=== PATIENT | male | born 1985 | race Caucasian/White ===

== ENCOUNTER 2017-08-19 18:40 | Emergency (ER) | payer OTHER ==
[2017-08-19 20:52] LABS: #Eosinphils 0.1 thou/uL (0.0-0.7); #Lymphocytes 1.7 thou/uL (1.20-3.40); #Monocytes 0.8 thou/uL (0.11-0.59); #Neutrophils 8.8 thou/uL (1.40-6.50); %Basophils 0.2 % (0.0-1.0); %Eosinophils 0.9 % (0.0-10.0); %Lymphocytes 14.8 % (21.0-51.0); %Monocytes 6.9 % (0.0-10.0); %Neutrophils 77.3 % (42.0-75.0); Hemoglobin 14.5 g/dL (14.0-18.0); Mean Corpuscular HGB CONC 33.2 g/dL (32.0-36.0); Mean Corpuscular Hemoglobin 30.9 pg (27.0-31.0); Mean Corpuscular Volume 92.9 fl (80.0-94.0); Mean Platelet Volume 7.5 fL (7.4-10.4); Platelet Count 190 thou/uL (130-400); RBC Distribution Width 12.1 % (11.5-14.5); Red Blood Cell (RBC) Count 4.71 mill/uL (4.70-6.10); White Blood Cell (WBC) Count 11.4 thou/uL (4.8-10.8)
[2017-08-19 21:08] LABS: Bilirubin Negative (Negative); Blood, Urine Negative (Negative); Clarity CLOUDY (Clear); Glucose, Urine (Dipstick) Negative (Negative); Leukocyte Moderate (Negative); Nitrite Positive (Negative); Protein, Urine (Dipstick) Negative (Neg-Trace); Specific Gravity, Urine 1.008 (1.002-1.036); Urobilinogen 0.2 mg/dL (0.2-1.0)
[2017-08-19 21:10] LABS: Bacteria/HPF 4+ HPF (None Seen); RBC/HPF 0-3 HPF (0-3)
[2017-08-19 21:11] LABS: Pathc Cast-AUWi Flag 3.11 (0-2.49)
[2017-08-19 21:15] LABS: ALT (SGPT) 24 U/L (8-55); AST (SGOT) 18 U/L (5-34); Albumin 3.9 g/dL (3.5-5.0); Alkaline Phosphatase 101 U/L (40-150); Anion Gap 15 mmol/L (10-20); BUN (Urea Nitrogen) 12 mg/dL (8.9-20.6); Bilirubin, Total 0.4 mg/dL (0.2-1.2); Calc. Creatinine Clearance 0 mL/min (70-130); Calcium 9.3 mg/dL (7.8-10.44); Carbon Dioxide 23 mmol/L (22-29); Chloride 101 mmol/L (98-107); Estimated GFR-MDRD Greater than 90; Globulin 3.5 g/dL (2.4-3.5); Glucose 92 mg/dL (70-105); Lipase 57 U/L (8-78); Potassium 3.6 mmol/L (3.5-5.1); Protein, Total 7.4 g/dL (6.0-8.3); Sodium 135 mmol/L (136-145)
[2017-08-19 21:17] LABS: Amphetamine Not Detected (NotDetected); Barbiturates Screen Not Detected (NotDetected); Benzodiazepine Screen Not Detected (NotDetected); Cocaine Metabolite Screen Not Detected (NotDetected); Medtox Control Line Valid? VALID (VALID); Medtox Reader # READER 1; Methadone Not Detected (NotDetected); Methamphetamine Not Detected (NotDetected); Opiate Screen Not Detected (NotDetected); Oxycodone Screen Not Detected (NotDetected); Phencyclidine (PCP) Not Detected (NotDetected); THC/Cannabinoid Screen Not Detected (NotDetected); Tricyclic Screen Not Detected (NotDetected)
[2017-08-19 21:19] LABS: CKMB 3.7 ng/mL (0-6.6); Troponin I Less than 0.010 ng/mL (< 0.028)
[2017-08-19 21:20] LABS: Hyaline Casts/LPF 0-3 HYALINE CAST LPF (0-3 Hyaline)
--- NOTE | 2017-08-19 22:18 | RAD ---
CHEST 1 VIEW: Date: 08/19/17 HISTORY: Altered mental status. COMPARISON: 06/30/09. FINDINGS: Normal cardiac silhouette. Pulmonary vessels and hilum are normal. Costophrenic angles are clear. Ple ural based opacity along the left lung apex, unchanged. Partial obscuration of left hemidiaphragm and increased density projecting through the cardiac silhou ette. IMPRESSION: 1. Left lower lobe infiltrate. 2. Stable opacity in left lung apex. POS: [facility]
--- NOTE | 2017-08-19 23:04 | CT ---
CT HEAD WITHOUT CONTRAST: Date: 08/19/17 Multiple axial tomograms obtained through the head without IV enhancement. HISTORY: Mental status change. Comparison made to head CT of 07/24/08. FINDINGS: There is mild volume loss involving the frontal lobe cortex bilaterally which is symmetric. This was present on the prior exam. It is more prominent than expected for patient's age. It has slightly prog ressed since the prior study. There is no evidence of mass, hemorrhage, or infarct. IMPRESSION: 1. Mild frontal lobe volume loss, more prominent than expected for age. 2. No acute abnormality. POS: [facility]
== END 2017-08-19 23:33 | disposition home or self-care (01) ==
LOC: ERS 18:40
DX: J18.9 Pneumonia, unspecified organism (principal); G82.50 Quadriplegia, unspecified; F32.9 Major depressive disorder, single episode, unspecified
CPT/HCPCS: 36415; 70450; 71045; 80053; 80306; 81003; 81015; 82553; 83605; 83690; 84443; 84484; 85025; 85652; 87040; 93005

== ENCOUNTER 2021-02-10 21:57 | Inpatient (IN) | payer OTHER ==
[2021-02-10 22:24] LABS: Bacteria/HPF 4+ HPF (None Seen); Bilirubin Negative (Negative); Blood, Urine Negative (Negative); Clarity Turbid (Clear); Glucose, Urine (Dipstick) Normal (Negative); Ketone, Urine Negative (Negative); Leukocyte 250 Leu/uL (Negative); Nitrite 2+ (Negative); Protein, Urine (Dipstick) Negative (Neg-Trace); Renal Epithelial 0-3 HPF (None Seen); Specific Gravity, Urine 1.011 (1.002-1.036); Squamous Epithelial 0-3 HPF (0-3); Urobilinogen Normal mg/dL (Less than 2)
[2021-02-10] MEDS ORDERED: Azithromycin 500 MG VIAL ONE (22:32)
[2021-02-10] MEDS ORDERED: cefTRIAXone\\ROCEPHIN 2 GM VIAL ONE (22:32)
[2021-02-10 22:55] LABS: #Eosinphils 0.1 thou/uL (0.0-0.7); #Lymphocytes 1.6 thou/uL (1.20-3.40); #Monocytes 0.7 thou/uL (0.11-0.59); #Neutrophils 7.3 thou/uL (1.40-6.50); %Basophils 0.2 % (0.0-1.0); %Eosinophils 1.4 % (0.0-10.0); %Lymphocytes 16.6 % (21.0-51.0); %Monocytes 6.8 % (0.0-10.0); Hemoglobin 13.7 g/dL (14.0-18.0); Mean Corpuscular HGB CONC 33.4 g/dL (32.0-36.0); Mean Corpuscular Hemoglobin 29.8 pg (27.0-31.0); Mean Corpuscular Volume 89.4 fL (78.0-98.0); Platelet Count 204 thou/uL (130-400); RBC Distribution Width 12.9 % (11.5-14.5); Red Blood Cell (RBC) Count 4.58 mill/uL (4.70-6.10); White Blood Cell (WBC) Count 9.7 thou/uL (4.8-10.8)
[2021-02-10 23:17] LABS: ALT (SGPT) 24 U/L (8-55); AST (SGOT) 15 U/L (5-34); Albumin 3.7 g/dL (3.5-5.0); Alkaline Phosphatase 90 U/L (40-110); Anion Gap 11 mmol/L (10-20); BUN (Urea Nitrogen) 6 mg/dL (8.9-20.6); Bilirubin, Total 0.4 mg/dL (0.2-1.2); Calc. Creatinine Clearance 0 mL/min (70-130); Calcium 9.3 mg/dL (7.8-10.44); Carbon Dioxide 29 mmol/L (22-29); Chloride 100 mmol/L (98-107); Globulin 4.2 g/dL (2.4-3.5); Glucose 142 mg/dL (70-105); Potassium 3.8 mmol/L (3.5-5.1); Protein, Total 7.9 g/dL (6.0-8.3); Sodium 136 mmol/L (136-145)
[2021-02-11] MEDS ORDERED: guaiFENesin 200 MG TAB PO SCH (00:15)
[2021-02-11 00:40] LABS: SARS-CoV-2 NAA Rapid Test Not Detected (NotDetected)
[2021-02-11] MEDS ORDERED: Ondansetron PF 4 MG/2 ML Vial IVP PRN ×2 (03:30→03:47)
[2021-02-11] MEDS ORDERED: Ondansetron ODT 4 MG TAB PO PRN (03:30)
[2021-02-11] MEDS: Acetaminophen 325 MG TAB PO PRN ×3 (03:50→19:40)
[2021-02-11] MEDS: Acetylcysteine 20% 200 MG/ML 30 ML VIAL INH SCH ×2 (04:30→14:33)
[2021-02-11 04:36] LABS: #Lymphocytes 0.6 thou/uL (1.20-3.40); #Monocytes 1.5 thou/uL (0.11-0.59); #Neutrophils 16.2 thou/uL (1.40-6.50); %Eosinophils 0.2 % (0.0-10.0); %Lymphocytes 3.5 % (21.0-51.0); %Monocytes 8.1 % (0.0-10.0); %Neutrophils 88.3 % (42.0-75.0); Hemoglobin 12.7 g/dL (14.0-18.0); Mean Corpuscular HGB CONC 32.3 g/dL (32.0-36.0); Mean Corpuscular Hemoglobin 28.8 pg (27.0-31.0); Mean Corpuscular Volume 89.1 fL (78.0-98.0); Platelet Count 188 thou/uL (130-400); RBC Distribution Width 12.9 % (11.5-14.5); Red Blood Cell (RBC) Count 4.42 mill/uL (4.70-6.10); White Blood Cell (WBC) Count 18.3 thou/uL (4.8-10.8)
[2021-02-11 04:58] LABS: Anion Gap 10 mmol/L (10-20); BUN (Urea Nitrogen) 5 mg/dL (8.9-20.6); Calc. Creatinine Clearance 319 mL/min (70-130); Calcium 8.5 mg/dL (7.8-10.44); Carbon Dioxide 25 mmol/L (22-29); Chloride 106 mmol/L (98-107); Glucose 122 mg/dL (70-105); Potassium 3.5 mmol/L (3.5-5.1); Sodium 137 mmol/L (136-145)
[2021-02-11] MEDS: Enoxaparin Sodium 40 MG/0.4 ML SYRINGE SC SCH (10:10)
[2021-02-11] MEDS ORDERED: Morphine 2 MG/ML VIAL SLOW IVP PRN (18:45)
[2021-02-11] MEDS: guaiFENesin ER 600 MG TAB PO SCH (19:40)
[2021-02-11] MEDS ORDERED: Sodium Chloride 0.9% 500 ML IV SCH (20:15)
[2021-02-11] MEDS ORDERED: Azithromycin 500 MG in Sodium Chloride 0.9% 250 ML 250 ML IVPB SCH (20:30)
[2021-02-11] MEDS ORDERED: cefTRIAXone\\ROCEPHIN 1 GM in Sodium Chloride 0.9% 100 ML IVPB SCH (21:00)
[2021-02-11] MEDS: cefTRIAXone\\ROCEPHIN 2 GM in Sodium Chloride 0.9% 100 ML IVPB SCH (21:05)
[2021-02-12 03:38] LABS: #Eosinphils 0.1 thou/uL (0.0-0.7); #Monocytes 0.9 thou/uL (0.11-0.59); #Neutrophils 5.3 thou/uL (1.40-6.50); %Eosinophils 1.8 % (0.0-10.0); %Lymphocytes 13.4 % (21.0-51.0); %Monocytes 12.6 % (0.0-10.0); %Neutrophils 72.1 % (42.0-75.0); Hemoglobin 11.5 g/dL (14.0-18.0); Mean Corpuscular HGB CONC 33.2 g/dL (32.0-36.0); Mean Corpuscular Hemoglobin 30.1 pg (27.0-31.0); Mean Corpuscular Volume 90.8 fL (78.0-98.0); Platelet Count 165 thou/uL (130-400); RBC Distribution Width 13.1 % (11.5-14.5); White Blood Cell (WBC) Count 7.4 thou/uL (4.8-10.8)
[2021-02-12 03:53] LABS: Anion Gap 8 mmol/L (10-20); BUN (Urea Nitrogen) 7 mg/dL (8.9-20.6); Calc. Creatinine Clearance 342 mL/min (70-130); Calcium 8.6 mg/dL (7.8-10.44); Carbon Dioxide 30 mmol/L (22-29); Chloride 104 mmol/L (98-107); Glucose 121 mg/dL (70-105); Potassium 3.6 mmol/L (3.5-5.1); Sodium 138 mmol/L (136-145)
[2021-02-12] MEDS: Acetaminophen 325 MG TAB PO PRN (05:08)
[2021-02-12] MEDS: Enoxaparin Sodium 40 MG/0.4 ML SYRINGE SC SCH (08:20)
[2021-02-12] MEDS: guaiFENesin ER 600 MG TAB PO SCH ×2 (08:20→20:01)
[2021-02-12] MEDS: cefTRIAXone\\ROCEPHIN 2 GM in Sodium Chloride 0.9% 100 ML IVPB SCH (20:01)
[2021-02-13] MEDS: Acetaminophen 325 MG TAB PO PRN (00:59)
[2021-02-13] MEDS: Enoxaparin Sodium 40 MG/0.4 ML SYRINGE SC SCH (08:14)
[2021-02-13] MEDS: guaiFENesin ER 600 MG TAB PO SCH ×2 (08:14→20:42)
[2021-02-13 09:22] LABS: #Eosinphils 0.2 thou/uL (0.0-0.7); #Lymphocytes 1.2 thou/uL (1.20-3.40); #Monocytes 0.7 thou/uL (0.11-0.59); #Neutrophils 3.2 thou/uL (1.40-6.50); %Basophils 0.6 % (0.0-1.0); %Eosinophils 3.4 % (0.0-10.0); %Lymphocytes 22.7 % (21.0-51.0); %Monocytes 13.5 % (0.0-10.0); %Neutrophils 59.9 % (42.0-75.0); Hemoglobin 11.7 g/dL (14.0-18.0); Mean Corpuscular HGB CONC 31.5 g/dL (32.0-36.0); Mean Corpuscular Hemoglobin 28.5 pg (27.0-31.0); Mean Corpuscular Volume 90.7 fL (78.0-98.0); Mean Platelet Volume 7.2 fL (7.4-10.4); Platelet Count 187 thou/uL (130-400); Red Blood Cell (RBC) Count 4.11 mill/uL (4.70-6.10); White Blood Cell (WBC) Count 5.4 thou/uL (4.8-10.8)
[2021-02-13 09:30] LABS: Anion Gap 11 mmol/L (10-20); BUN (Urea Nitrogen) 4 mg/dL (8.9-20.6); Calc. Creatinine Clearance 323 mL/min (70-130); Carbon Dioxide 32 mmol/L (22-29); Chloride 99 mmol/L (98-107); Glucose 144 mg/dL (70-105); Potassium 4.1 mmol/L (3.5-5.1); Sodium 138 mmol/L (136-145)
[2021-02-13] MEDS: cefTRIAXone\\ROCEPHIN 2 GM in Sodium Chloride 0.9% 100 ML IVPB SCH (20:41)
[2021-02-14 04:06] LABS: Anion Gap 10 mmol/L (10-20); BUN (Urea Nitrogen) 7 mg/dL (8.9-20.6); Calc. Creatinine Clearance 303 mL/min (70-130); Calcium 8.9 mg/dL (7.8-10.44); Carbon Dioxide 32 mmol/L (22-29); Chloride 99 mmol/L (98-107); Glucose 109 mg/dL (70-105); Potassium 4.1 mmol/L (3.5-5.1); Sodium 137 mmol/L (136-145)
[2021-02-14 04:09] LABS: Band 3 % (5-11); Eosinophils 1 % (0-10); Hemoglobin 12.2 g/dL (14.0-18.0); Hypochromia SLIGHT = 6-15 cells (100X) (0-5/hpf); Lymphocytes 27 % (21-51); MDiff Complete? YES; Mean Corpuscular HGB CONC 32.2 g/dL (32.0-36.0); Mean Corpuscular Hemoglobin 29.2 pg (27.0-31.0); Mean Corpuscular Volume 90.6 fL (78.0-98.0); Mean Platelet Volume 7.4 fL (7.4-10.4); Monocytes 10 % (0-10); Neutrophil 59 % (42-75); Platelet Count 166 thou/uL (130-400); Platelet Morphology Comment Appears Adequate; RBC Distribution Width 13.2 % (11.5-14.5); Red Blood Cell (RBC) Count 4.19 mill/uL (4.70-6.10); White Blood Cell (WBC) Count 6.5 thou/uL (4.8-10.8)
[2021-02-14 09:07] LABS: Actual Bicarbonate (HCO3a) 32.7 mEq/L (22-28); Base Excess (BEa) 6.1 mEq/L (-2.0 to +3.0); CO2 Tension 56.5 mmHg (35.0-45.0); Calcium, Ionized (arterial) 1.18 mmol/L (1.12-1.30); Carboxyhemoglobin (COHb) 0.2 gm% (0.0-3.0); Hemoglobin (Hb) 13.3 g/dL (14.0-18.0); Potassium - ABG Lab 3.64 mmol/L (3.70-5.30); pH, Arterial 7.38 (7.35-7.45)
[2021-02-14 09:08] LABS: Puncture Site RRA
[2021-02-14] MEDS: Acetaminophen 325 MG TAB PO PRN (10:11)
[2021-02-14] MEDS: Enoxaparin Sodium 40 MG/0.4 ML SYRINGE SC SCH (10:12)
[2021-02-14] MEDS: guaiFENesin ER 600 MG TAB PO SCH ×2 (10:12→20:43)
[2021-02-14 10:52] VITALS: BMI 28.6
[2021-02-14] MEDS ORDERED: Vancomycin 1 GM in Premix Bag 1 BAG IVPB SCH (12:00)
[2021-02-14] MEDS: Vancomycin 1 GM in Premix Bag 1 BAG IVPB SCH (16:17)
[2021-02-14] MEDS: Bisacodyl 10 MG SUPP PR SCH (17:10)
[2021-02-14] MEDS: Baclofen 10 MG TAB PO PRN (18:32)
[2021-02-14] MEDS: cefTRIAXone\\ROCEPHIN 2 GM in Sodium Chloride 0.9% 100 ML IVPB SCH (20:42)
[2021-02-15] MEDS: Vancomycin 1 GM in Premix Bag 1 BAG IVPB SCH ×2 (03:30→15:25)
[2021-02-15] MEDS: Acetaminophen 325 MG TAB PO PRN (06:12)
[2021-02-15] MEDS: Baclofen 10 MG TAB PO PRN ×2 (07:17→21:13)
[2021-02-15] MEDS: Enoxaparin Sodium 40 MG/0.4 ML SYRINGE SC SCH (08:33)
[2021-02-15] MEDS: guaiFENesin ER 600 MG TAB PO SCH ×2 (10:00→21:13)
[2021-02-15] MEDS: cefTRIAXone\\ROCEPHIN 2 GM in Sodium Chloride 0.9% 100 ML IVPB SCH (21:12)
[2021-02-15] MEDS: Scopolamine 1.5 mg/72 hour Patch TD SCH (21:12)
[2021-02-16] MEDS: Vancomycin 1 GM in Premix Bag 1 BAG IVPB SCH (03:18)
[2021-02-16] MEDS: Acetaminophen 325 MG TAB PO PRN (07:31)
[2021-02-16] MEDS: guaiFENesin ER 600 MG TAB PO SCH ×2 (09:09→20:55)
[2021-02-16] MEDS: Enoxaparin Sodium 40 MG/0.4 ML SYRINGE SC SCH (09:10)
[2021-02-16] MEDS: Baclofen 10 MG TAB PO PRN (09:14)
[2021-02-16] MEDS: Amoxicillin/Potassium Clav 875 MG TAB PO SCH ×2 (09:14→20:55)
[2021-02-16 10:11] LABS: #Eosinphils 0.3 thou/uL (0.0-0.7); #Lymphocytes 1.5 thou/uL (1.20-3.40); #Monocytes 0.6 thou/uL (0.11-0.59); #Neutrophils 4.3 thou/uL (1.40-6.50); %Basophils 0.5 % (0.0-1.0); %Eosinophils 4.4 % (0.0-10.0); %Lymphocytes 22.8 % (21.0-51.0); %Monocytes 9.4 % (0.0-10.0); Mean Corpuscular HGB CONC 32.2 g/dL (32.0-36.0); Mean Corpuscular Volume 89.8 fL (78.0-98.0); Mean Platelet Volume 6.7 fL (7.4-10.4); Platelet Count 210 thou/uL (130-400); RBC Distribution Width 12.8 % (11.5-14.5); Red Blood Cell (RBC) Count 4.15 mill/uL (4.70-6.10); White Blood Cell (WBC) Count 6.7 thou/uL (4.8-10.8)
[2021-02-16 10:32] LABS: Anion Gap 10 mmol/L (10-20); BUN (Urea Nitrogen) 6 mg/dL (8.9-20.6); Calc. Creatinine Clearance 304 mL/min (70-130); Calcium 9.3 mg/dL (7.8-10.44); Carbon Dioxide 34 mmol/L (22-29); Chloride 98 mmol/L (98-107); Glucose 107 mg/dL (70-105); Potassium 3.8 mmol/L (3.5-5.1); Sodium 138 mmol/L (136-145)
[2021-02-16] MEDS: Linezolid 600 MG TAB PO SCH ×2 (10:35→20:55)
[2021-02-16] MEDS: Bisacodyl 10 MG SUPP PR SCH (18:29)
[2021-02-17] MEDS: Amoxicillin/Potassium Clav 875 MG TAB PO SCH ×2 (09:00→21:28)
[2021-02-17] MEDS: guaiFENesin ER 600 MG TAB PO SCH ×2 (09:00→21:27)
[2021-02-17] MEDS: Linezolid 600 MG TAB PO SCH ×2 (09:00→21:28)
[2021-02-17] MEDS: Enoxaparin Sodium 40 MG/0.4 ML SYRINGE SC SCH (09:01)
[2021-02-17] MEDS: Baclofen 10 MG TAB PO PRN (09:21)
[2021-02-18] MEDS: Amoxicillin/Potassium Clav 875 MG TAB PO SCH ×2 (08:42→22:19)
[2021-02-18] MEDS: guaiFENesin ER 600 MG TAB PO SCH ×2 (08:42→22:19)
[2021-02-18] MEDS: Linezolid 600 MG TAB PO SCH ×2 (08:42→22:19)
[2021-02-18] MEDS: Enoxaparin Sodium 40 MG/0.4 ML SYRINGE SC SCH (08:42)
[2021-02-18 12:52] LABS: SARS-CoV-2 PCR by NAA Not Detected (NotDetected)
[2021-02-18] MEDS: Scopolamine 1.5 mg/72 hour Patch TD SCH (17:18)
[2021-02-18] MEDS: Bisacodyl 10 MG SUPP PR SCH (17:19)
[2021-02-18] MEDS: Acetaminophen 325 MG TAB PO PRN (22:19)
[2021-02-19] MEDS: Linezolid 600 MG TAB PO SCH (08:06)
[2021-02-19] MEDS: guaiFENesin ER 600 MG TAB PO SCH (08:06)
[2021-02-19] MEDS: Amoxicillin/Potassium Clav 875 MG TAB PO SCH (08:06)
[2021-02-19] MEDS: Enoxaparin Sodium 40 MG/0.4 ML SYRINGE SC SCH (08:06)
[2021-02-19 17:30] VITALS: BP 134/83; TEMP 98.5
== END 2021-02-19 19:22 | disposition home or self-care (01) | DRG 698 ==
LOC: ERS 21:57 → 2NO 02-11 02:06 → CCU 02-11 22:07 → T4-B 02-16 15:05
PROVIDERS: ADMIT Student in an Organized Health Care Education/Training Program; ATTEND Internal Medicine
PROC: 5A09357 Assistance with Respiratory Ventilation, Less than 24 Consecutive Hours, Continuous Positive Airway Pressure (ICD-10-PCS; principal; 2021-02-11)
DX: T83.510A Infection and inflammatory reaction due to cystostomy catheter, initial encounter (principal); G82.50 Quadriplegia, unspecified; J96.21 Acute and chronic respiratory failure with hypoxia; J96.22 Acute and chronic respiratory failure with hypercapnia; J18.9 Pneumonia, unspecified organism; N39.0 Urinary tract infection, site not specified; D64.9 Anemia, unspecified; Z20.822 Contact with and (suspected) exposure to COVID-19; J20.9 Acute bronchitis, unspecified; Y84.6 Urinary catheterization as the cause of abnormal reaction of the patient, or of later complication, without mention of misadventure at the time of the procedure; N31.9 Neuromuscular dysfunction of bladder, unspecified; E87.8 Other disorders of electrolyte and fluid balance, not elsewhere classified; S19.89 Other specified injuries of other specified part of neck; X58.XXXS Exposure to other specified factors, sequela; Z98.890 Other specified postprocedural states
CPT/HCPCS: 0240U; 36415; 36600; 71045; 80048; 80053; 81003; 81015; 82805; 83605; 83880; 85025; 87040; 87086; 93005; 93010; 94640; 94660; 94668; 96365; 96367; J0132; J0456; J0696; J1650; J2405; J3370; J3490; J7030; J7620; U0003; U0005

== ENCOUNTER 2022-02-20 13:16 | Inpatient (IN) | payer OTHER ==
[~2022-02-20 13:16] MED LIST: Iopamidol-370 76% 500 ML 1 ML ONE
[2022-02-20] MEDS ORDERED: Ondansetron PF 4 MG/2 ML Vial ONE (14:06)
[2022-02-20 14:08] LABS: #Eosinphils 0.1 thou/uL (0.0-0.7); #Lymphocytes 1.1 thou/uL (1.20-3.40); #Monocytes 0.7 thou/uL (0.11-0.59); #Neutrophils 11.7 thou/uL (1.40-6.50); %Basophils 0.1 % (0.0-1.0); %Eosinophils 0.4 % (0.0-10.0); %Lymphocytes 8.2 % (21.0-51.0); %Monocytes 5.2 % (0.0-10.0); %Neutrophils 86.1 % (42.0-75.0); Hemoglobin 14.9 g/dL (14.0-18.0); Mean Corpuscular HGB CONC 33.2 g/dL (32.0-36.0); Mean Corpuscular Volume 87.5 fL (78.0-98.0); Mean Platelet Volume 8.6 fL (7.4-10.4); Platelet Count 256 thou/uL (130-400); RBC Distribution Width 12.9 % (11.5-14.5); Red Blood Cell (RBC) Count 5.13 mill/uL (4.70-6.10); White Blood Cell (WBC) Count 13.6 thou/uL (4.8-10.8)
[2022-02-20 15:17] LABS: Bacteria/HPF 4+ HPF (None Seen); Bilirubin Negative (Negative); Blood, Urine Trace (Negative); Clarity Extra Turbid (Clear); Glucose, Urine (Dipstick) Normal (Negative); Ketone, Urine Negative (Negative); Leukocyte 500 Leu/uL (Negative); Nitrite Negative (Negative); Protein, Urine (Dipstick) 20 mg/dL (Neg-Trace); RBC/HPF 0-3 HPF (0-3); Specific Gravity, Urine 1.005 (1.002-1.036); Urobilinogen Normal mg/dL (Less than 2)
[2022-02-20 15:21] LABS: Albumin 3.8 g/dL (3.5-5.0)
[2022-02-20 15:22] LABS: Chloride 95 mmol/L (98-107); Potassium 3.5 mmol/L (3.5-5.1); Sodium 131 mmol/L (136-145)
[2022-02-20 15:23] LABS: Calcium 9.3 mg/dL (7.8-10.44)
[2022-02-20 15:24] LABS: Globulin 4.9 g/dL (2.4-3.5); Glucose 125 mg/dL (70-105); Protein, Total 8.7 g/dL (6.0-8.3)
[2022-02-20 15:25] LABS: Anion Gap 12 mmol/L (10-20); Bilirubin, Total 0.6 mg/dL (0.2-1.2); Carbon Dioxide 28 mmol/L (22-29)
[2022-02-20 15:26] LABS: Alkaline Phosphatase 92 U/L (40-110)
[2022-02-20 15:27] LABS: BUN (Urea Nitrogen) 12 mg/dL (8.9-20.6); Calc. Creatinine Clearance 0 mL/min (70-130); Estimated GFR 132
[2022-02-20 15:28] LABS: AST (SGOT) 12 U/L (5-34)
[2022-02-20 15:29] LABS: ALT (SGPT) 14 U/L (8-55); Magnesium 1.8 mg/dL (1.6-2.6)
[2022-02-20 15:32] LABS: Squamous Epithelial 0-3 HPF (0-3); Transitional Epithelial 0-3 HPF (None Seen)
[2022-02-20] MEDS ORDERED: cefTRIAXone\\ROCEPHIN 2 GM VIAL ONE (16:33)
[2022-02-20] MEDS ORDERED: hydrALAZINE 20 MG/ML VIAL SLOW IVP PRN (19:18)
[2022-02-20] MEDS ORDERED: Acetaminophen 325 MG TAB PO PRN (19:18)
[2022-02-20] MEDS: Lactated Ringer's 1,000 ML IV SCH (20:03)
[2022-02-20 20:07] VITALS: BMI 24.9
[2022-02-20] MEDS: Famotidine 20 MG TAB PO SCH (22:04)
[2022-02-20] MEDS ORDERED: Ondansetron PF 4 MG/2 ML Vial IVP PRN (23:08)
[2022-02-20] MEDS ORDERED: Ondansetron ODT 4 MG TAB PO PRN (23:08)
[2022-02-21] MEDS: Lactated Ringer's 1,000 ML IV SCH ×3 (03:15→21:07)
[2022-02-21 04:49] LABS: SARS-CoV-2 NAA Rapid Test Not Detected (NotDetected)
[2022-02-21 06:06] LABS: #Eosinphils 0.3 thou/uL (0.0-0.7); #Lymphocytes 1.8 thou/uL (1.20-3.40); #Monocytes 1.2 thou/uL (0.11-0.59); #Neutrophils 5.3 thou/uL (1.40-6.50); %Basophils 0.2 % (0.0-1.0); %Lymphocytes 20.7 % (21.0-51.0); %Monocytes 13.9 % (0.0-10.0); %Neutrophils 61.2 % (42.0-75.0); Hemoglobin 12.7 g/dL (14.0-18.0); Mean Corpuscular HGB CONC 32.9 g/dL (32.0-36.0); Mean Corpuscular Hemoglobin 29.2 pg (27.0-31.0); Mean Corpuscular Volume 88.9 fL (78.0-98.0); Platelet Count 245 thou/uL (130-400); RBC Distribution Width 12.8 % (11.5-14.5); Red Blood Cell (RBC) Count 4.33 mill/uL (4.70-6.10); White Blood Cell (WBC) Count 8.7 thou/uL (4.8-10.8)
[2022-02-21 06:30] LABS: Anion Gap 12 mmol/L (10-20); BUN (Urea Nitrogen) 8 mg/dL (8.9-20.6); Calc. Creatinine Clearance 267 mL/min (70-130); Calcium 8.7 mg/dL (7.8-10.44); Carbon Dioxide 25 mmol/L (22-29); Chloride 100 mmol/L (98-107); Estimated GFR 141; Glucose 121 mg/dL (70-105); Potassium 3.3 mmol/L (3.5-5.1); Sodium 134 mmol/L (136-145)
[2022-02-21] MEDS ORDERED: MD-Gastroview 120 ML BOT ONE (09:41)
[2022-02-21] MEDS ORDERED: Chloraseptic Spray 180 ml Bottle PO PRN (10:14)
[2022-02-21] MEDS ORDERED: Potassium Chloride 20 MEQ TAB PO SCH (15:30)
[2022-02-21] MEDS: Enoxaparin Sodium 40 MG/0.4 ML SYRINGE SC SCH (15:41)
[2022-02-21] MEDS: Famotidine 20 MG TAB PO SCH ×2 (15:42→21:08)
[2022-02-21] MEDS: Nystatin Powder 15 GM BOT TOP SCH ×2 (15:43→21:08)
[2022-02-21] MEDS: cefTRIAXone\\ROCEPHIN 1 GM in Sodium Chloride 0.9% 100 ML IVPB SCH (18:24)
[2022-02-21] MEDS: Senokot S 8.6-50 MG TAB PO SCH (21:08)
[2022-02-22] MEDS: Lactated Ringer's 1,000 ML IV SCH (05:28)
[2022-02-22] MEDS: Enoxaparin Sodium 40 MG/0.4 ML SYRINGE SC SCH (09:15)
[2022-02-22] MEDS: Nystatin Powder 15 GM BOT TOP SCH ×3 (09:15→21:32)
[2022-02-22] MEDS: Famotidine 20 MG TAB PO SCH ×2 (09:15→21:31)
[2022-02-22] MEDS: Polyethylene Glycol 3350 17 GM Packet PO SCH (09:15)
[2022-02-22] MEDS: Senokot S 8.6-50 MG TAB PO SCH ×2 (09:16→21:33)
[2022-02-22] MEDS: cefTRIAXone\\ROCEPHIN 1 GM in Sodium Chloride 0.9% 100 ML IVPB SCH (17:31)
[2022-02-23] MEDS: Polyethylene Glycol 3350 17 GM Packet PO SCH (09:22)
[2022-02-23] MEDS: Senokot S 8.6-50 MG TAB PO SCH ×2 (09:22→21:03)
[2022-02-23] MEDS: Famotidine 20 MG TAB PO SCH ×2 (09:28→20:59)
[2022-02-23] MEDS: Enoxaparin Sodium 40 MG/0.4 ML SYRINGE SC SCH (09:28)
[2022-02-23] MEDS: Nystatin Powder 15 GM BOT TOP SCH ×3 (09:29→21:03)
[2022-02-23] MEDS: cefTRIAXone\\ROCEPHIN 1 GM in Sodium Chloride 0.9% 100 ML IVPB SCH (17:31)
[2022-02-24] MEDS: Enoxaparin Sodium 40 MG/0.4 ML SYRINGE SC SCH (09:09)
[2022-02-24] MEDS: Senokot S 8.6-50 MG TAB PO SCH ×2 (09:09→09:11)
[2022-02-24] MEDS: Famotidine 20 MG TAB PO SCH (09:09)
[2022-02-24] MEDS: Nystatin Powder 15 GM BOT TOP SCH (09:09)
[2022-02-24] MEDS: Polyethylene Glycol 3350 17 GM Packet PO SCH (09:10)
[2022-02-24 12:04] VITALS: BP 101/67; TEMP 98
== END 2022-02-24 15:46 | disposition home or self-care (01) | DRG 698 ==
LOC: ERS 13:16 → ERHOLD 17:24 → SURG B 18:50
PROVIDERS: ADMIT Family Medicine; ATTEND Family Medicine
PROC: 0D9670Z Drainage of Stomach with Drainage Device, Via Natural or Artificial Opening (ICD-10-PCS; principal; 2022-02-20)
DX: T83.511A Infection and inflammatory reaction due to indwelling urethral catheter, initial encounter (principal); R53.2 Functional quadriplegia; K56.600 Partial intestinal obstruction, unspecified as to cause; N39.0 Urinary tract infection, site not specified; Z20.822 Contact with and (suspected) exposure to COVID-19; K59.00 Constipation, unspecified; Y84.6 Urinary catheterization as the cause of abnormal reaction of the patient, or of later complication, without mention of misadventure at the time of the procedure; B96.20 Unspecified Escherichia coli [E. coli] as the cause of diseases classified elsewhere; B96.1 Klebsiella pneumoniae [K. pneumoniae] as the cause of diseases classified elsewhere; B96.4 Proteus (mirabilis) (morganii) as the cause of diseases classified elsewhere; N28.89 Other specified disorders of kidney and ureter; L89.152 Pressure ulcer of sacral region, stage 2; Z80.8 Family history of malignant neoplasm of other organs or systems; Z83.3 Family history of diabetes mellitus
CPT/HCPCS: 36415; 74018; 74177; 74250; 80048; 80053; 81003; 81015; 83735; 85025; 87077; 87086; 87186; 96374; 96375; 97139; J0696; J1650; J2405; J3490; J7120; Q9963; Q9967; U0002

== ENCOUNTER 2022-03-11 11:52 | Inpatient (IN) | payer OTHER ==
[2022-03-11] MEDS ORDERED: Vancomycin 1 GM/200 ML BAG ONE (12:23)
[2022-03-11] MEDS ORDERED: cefTRIAXone\\ROCEPHIN 1 GM VIAL ONE (12:23)
[2022-03-11 12:58] LABS: #Eosinphils 0.3 thou/uL (0.0-0.7); #Lymphocytes 1.4 thou/uL (1.20-3.40); #Monocytes 0.7 thou/uL (0.11-0.59); #Neutrophils 4.9 thou/uL (1.40-6.50); %Basophils 0.1 % (0.0-1.0); %Eosinophils 3.6 % (0.0-10.0); %Lymphocytes 19.6 % (21.0-51.0); %Monocytes 9.2 % (0.0-10.0); %Neutrophils 67.5 % (42.0-75.0); Hemoglobin 12.6 g/dL (14.0-18.0); Mean Corpuscular HGB CONC 32.4 g/dL (32.0-36.0); Mean Corpuscular Hemoglobin 28.9 pg (27.0-31.0); Mean Corpuscular Volume 89.5 fL (78.0-98.0); Mean Platelet Volume 6.7 fL (7.4-10.4); Platelet Count 212 thou/uL (130-400); RBC Distribution Width 13.1 % (11.5-14.5); Red Blood Cell (RBC) Count 4.36 mill/uL (4.70-6.10); White Blood Cell (WBC) Count 7.2 thou/uL (4.8-10.8)
[2022-03-11 13:24] LABS: ALT (SGPT) 25 U/L (8-55); AST (SGOT) 19 U/L (5-34); Albumin 3.7 g/dL (3.5-5.0); Alkaline Phosphatase 90 U/L (40-110); Anion Gap 13 mmol/L (10-20); BUN (Urea Nitrogen) 6 mg/dL (8.9-20.6); Bilirubin, Total 0.3 mg/dL (0.2-1.2); Calc. Creatinine Clearance 0 mL/min (70-130); Carbon Dioxide 23 mmol/L (22-29); Chloride 103 mmol/L (98-107); Estimated GFR 137; Globulin 4.5 g/dL (2.4-3.5); Glucose 111 mg/dL (70-105); Potassium 3.6 mmol/L (3.5-5.1); Protein, Total 8.2 g/dL (6.0-8.3); Sodium 135 mmol/L (136-145)
[2022-03-11 13:26] LABS: Bilirubin Negative (Negative); Blood, Urine Negative (Negative); Clarity Clear (Clear); Glucose, Urine (Dipstick) Normal (Negative); Ketone, Urine Negative (Negative); Leukocyte 500 Leu/uL (Negative); Nitrite 2+ (Negative); Protein, Urine (Dipstick) 10 mg/dL (Neg-Trace); RBC/HPF 0-3 HPF (0-3); Specific Gravity, Urine 1.013 (1.002-1.036); Squamous Epithelial 0-3 HPF (0-3); Urobilinogen Normal mg/dL (Less than 2)
[2022-03-11 13:33] LABS: Bacteria/HPF 2+ HPF (None Seen); WBC/HPF 21-50 HPF (0-3)
[2022-03-11] MEDS ORDERED: Acetaminophen 325 MG TAB PO PRN (13:53)
[2022-03-11] MEDS ORDERED: Azithromycin 500 MG VIAL ONE (14:36)
[2022-03-11 16:34] LABS: SARS-CoV-2 NAA Rapid Test Not Detected (NotDetected)
[2022-03-11] MEDS: Azithromycin 500 MG in Sodium Chloride 0.9% 250 ML 250 ML IVPB SCH (16:44)
[2022-03-11 17:00] VITALS: BMI 24.7
[2022-03-11] MEDS: Sodium Chloride 0.9% 1,000 ML IV SCH (18:18)
[2022-03-12] MEDS: Sodium Chloride 0.9% 1,000 ML IV SCH ×4 (03:12→19:51)
[2022-03-12 05:56] LABS: #Eosinphils 0.5 thou/uL (0.0-0.7); #Lymphocytes 1.5 thou/uL (1.20-3.40); #Monocytes 0.8 thou/uL (0.11-0.59); #Neutrophils 5.3 thou/uL (1.40-6.50); %Basophils 0.1 % (0.0-1.0); %Eosinophils 5.9 % (0.0-10.0); %Lymphocytes 18.3 % (21.0-51.0); %Monocytes 9.4 % (0.0-10.0); %Neutrophils 66.3 % (42.0-75.0); Hemoglobin 12.5 g/dL (14.0-18.0); Mean Corpuscular HGB CONC 32.5 g/dL (32.0-36.0); Mean Corpuscular Hemoglobin 29.5 pg (27.0-31.0); Mean Corpuscular Volume 90.8 fL (78.0-98.0); Mean Platelet Volume 7.8 fL (7.4-10.4); Platelet Count 189 thou/uL (130-400); RBC Distribution Width 13.2 % (11.5-14.5); Red Blood Cell (RBC) Count 4.23 mill/uL (4.70-6.10)
[2022-03-12] MEDS ORDERED: Sodium Chloride 0.9% 500 ML IV SCH ×2 (06:30→17:45)
[2022-03-12 07:21] LABS: Chloride 107 mmol/L (98-107); Potassium 3.5 mmol/L (3.5-5.1); Sodium 136 mmol/L (136-145)
[2022-03-12 07:22] LABS: Calcium 8.4 mg/dL (7.8-10.44); Glucose 111 mg/dL (70-105)
[2022-03-12 07:24] LABS: Anion Gap 11 mmol/L (10-20); Carbon Dioxide 22 mmol/L (22-29)
[2022-03-12 07:26] LABS: BUN (Urea Nitrogen) Less than 4 mg/dL (8.9-20.6); Calc. Creatinine Clearance 272 mL/min (70-130); Estimated GFR 142
[2022-03-12] MEDS ORDERED: Iopamidol-370 76% 500 ML 1 ML ONE (09:14)
[2022-03-12] MEDS: cefTRIAXone\\ROCEPHIN 1 GM in Sodium Chloride 0.9% 100 ML IVPB SCH (13:58)
[2022-03-12] MEDS: Azithromycin 500 MG in Sodium Chloride 0.9% 250 ML 250 ML IVPB SCH (14:46)
[2022-03-13 05:33] LABS: #Eosinphils 0.4 thou/uL (0.0-0.7); #Lymphocytes 1.4 thou/uL (1.20-3.40); #Monocytes 0.7 thou/uL (0.11-0.59); #Neutrophils 2.4 thou/uL (1.40-6.50); %Basophils 0.3 % (0.0-1.0); %Eosinophils 8.1 % (0.0-10.0); %Lymphocytes 28.7 % (21.0-51.0); %Monocytes 14.8 % (0.0-10.0); %Neutrophils 48.1 % (42.0-75.0); Hemoglobin 10.5 g/dL (14.0-18.0); Mean Corpuscular HGB CONC 32.1 g/dL (32.0-36.0); Mean Corpuscular Hemoglobin 29.1 pg (27.0-31.0); Mean Corpuscular Volume 90.5 fL (78.0-98.0); Mean Platelet Volume 6.8 fL (7.4-10.4); Platelet Count 172 thou/uL (130-400); RBC Distribution Width 13.2 % (11.5-14.5); Red Blood Cell (RBC) Count 3.62 mill/uL (4.70-6.10); White Blood Cell (WBC) Count 4.9 thou/uL (4.8-10.8)
[2022-03-13] MEDS: Sodium Chloride 0.9% 1,000 ML IV SCH ×2 (05:39→16:47)
[2022-03-13 05:51] LABS: Anion Gap 8 mmol/L (10-20); BUN (Urea Nitrogen) 4 mg/dL (8.9-20.6); Calc. Creatinine Clearance 284 mL/min (70-130); Calcium 8.1 mg/dL (7.8-10.44); Carbon Dioxide 22 mmol/L (22-29); Chloride 110 mmol/L (98-107); Estimated GFR 144; Glucose 143 mg/dL (70-105); Potassium 3.4 mmol/L (3.5-5.1); Sodium 137 mmol/L (136-145)
[2022-03-13] MEDS ORDERED: Potassium Chloride 20 MEQ TAB PO SCH (09:30)
[2022-03-13] MEDS ORDERED: methylPREDNISolone Sod Succ/PF 125 MG/2 ML VIAL IVP SCH (12:30)
[2022-03-13] MEDS: Azithromycin 500 MG in Sodium Chloride 0.9% 250 ML 250 ML IVPB SCH (13:17)
[2022-03-13] MEDS: cefTRIAXone\\ROCEPHIN 1 GM in Sodium Chloride 0.9% 100 ML IVPB SCH (14:37)
[2022-03-13] MEDS ORDERED: Enoxaparin Sodium 40 MG/0.4 ML SYRINGE SC SCH (14:45)
[2022-03-14] MEDS: Sodium Chloride 0.9% 1,000 ML IV SCH ×2 (01:53→11:08)
[2022-03-14 08:50] VITALS: BP 88/57; TEMP 97.4
[2022-03-14] MEDS ORDERED: Enoxaparin Sodium 40 MG/0.4 ML SYRINGE SC SCH (09:00)
[2022-03-14] MEDS ORDERED: methylPREDNISolone Sod Succ/PF 125 MG/2 ML VIAL IVP SCH (10:15)
== END 2022-03-14 14:51 | disposition home or self-care (01) | DRG 193 ==
LOC: ERS 11:52 → SURG A 15:41 → MSONC 03-12 19:03
PROVIDERS: ADMIT Internal Medicine; ATTEND Internal Medicine
PROC: 3E03329 Introduction of Other Anti-infective into Peripheral Vein, Percutaneous Approach (ICD-10-PCS; principal; 2022-03-11)
PROC: 5A09357 Assistance with Respiratory Ventilation, Less than 24 Consecutive Hours, Continuous Positive Airway Pressure (ICD-10-PCS; 2022-03-11)
DX: J18.9 Pneumonia, unspecified organism (principal); G82.50 Quadriplegia, unspecified; N39.0 Urinary tract infection, site not specified; F32.A Depression, unspecified; D64.9 Anemia, unspecified; Z20.822 Contact with and (suspected) exposure to COVID-19; J40 Bronchitis, not specified as acute or chronic; Z98.890 Other specified postprocedural states
CPT/HCPCS: 36415; 36416; 71045; 71275; 80048; 80053; 81003; 81015; 83605; 83880; 84484; 85025; 85379; 87040; 87077; 87086; 87149; 87186; 87804; 93005; 94640; 94760; 96365; 96367; 97139; J0456; J0696; J1650; J2930; J3370; J3490; J7030; J7050; J7620; Q9967; U0002

== ENCOUNTER 2022-10-17 11:06 | Inpatient (IN) | payer OTHER ==
[~2022-10-17 11:06] MED LIST changes: -Iopamidol-370 76% 500 ML 1 ML ONE; +Iopamidol-370 76% 500 ML MDV (1 ML CHARGE) ONE
[2022-10-17 11:35] LABS: #Eosinphils 0.1 thou/uL (0.0-0.7); #Lymphocytes 1.6 thou/uL (1.20-3.40); #Monocytes 0.7 thou/uL (0.11-0.59); #Neutrophils 9.5 thou/uL (1.40-6.50); %Basophils 0.2 % (0.0-1.0); %Lymphocytes 13.3 % (21.0-51.0); %Monocytes 5.6 % (0.0-10.0); %Neutrophils 79.9 % (42.0-75.0); Hemoglobin 17.7 g/dL (14.0-18.0); Mean Corpuscular HGB CONC 33.6 g/dL (32.0-36.0); Mean Corpuscular Hemoglobin 29.4 pg (27.0-31.0); Mean Corpuscular Volume 87.7 fl (78.0-98.0); Mean Platelet Volume 7.4 fL (7.4-10.4); Platelet Count 243 10x3/uL (130-400); RBC Distribution Width 13.4 % (11.5-14.5); Red Blood Cell (RBC) Count 6.02 mill/uL (4.70-6.10); White Blood Cell (WBC) Count 11.9 10x3/uL (4.8-10.8)
[2022-10-17 11:58] LABS: ALT (SGPT) 30 U/L (8-55); AST (SGOT) 21 U/L (5-34); Albumin 5.1 g/dL (3.5-5.0); Alkaline Phosphatase 120 U/L (40-110); Anion Gap 18 mmol/L (10-20); BUN (Urea Nitrogen) 19 mg/dL (8.9-20.6); Bilirubin, Total 0.5 mg/dL (0.2-1.2); Calc. Creatinine Clearance 0 mL/min (70-130); Calcium 10.9 mg/dL (7.8-10.44); Carbon Dioxide 24 mmol/L (22-29); Chloride 101 mmol/L (98-107); Estimated GFR 125; Globulin 5.3 g/dL (2.4-3.5); Glucose 134 mg/dL (70-105); Lipase 26 U/L (8-78); Protein, Total 10.4 g/dL (6.0-8.3); Sodium 139 mmol/L (136-145)
[2022-10-17] MEDS ORDERED: Morphine 4 MG/ML VIAL ONE (12:13)
[2022-10-17] MEDS ORDERED: Ondansetron PF 4 MG/2 ML Vial ONE (12:13)
[2022-10-17 13:16] LABS: Bacteria/HPF None Seen HPF (None Seen); Bilirubin Negative (Negative); Blood, Urine Negative (Negative); Glucose, Urine (Dipstick) Normal (Negative); Ketone, Urine Negative (Negative); Leukocyte 25 Leu/uL (Negative); Nitrite Negative (Negative); Protein, Urine (Dipstick) 300 mg/dL (Neg-Trace); RBC/HPF None Seen HPF (0-3); Specific Gravity, Urine 1.022 (1.002-1.036); Squamous Epithelial None Seen HPF (0-3); Urobilinogen Normal mg/dL (Less than 2); WBC/HPF None Seen HPF (0-3)
[2022-10-17 13:17] LABS: Clarity Hazy (Clear)
[2022-10-17] MEDS ORDERED: Ondansetron PF 4 MG/2 ML Vial IVP PRN (14:43)
[2022-10-17] MEDS ORDERED: Acetaminophen 325 MG TAB PO PRN (14:43)
[2022-10-17] MEDS ORDERED: Bisacodyl 5 MG TAB PO PRN (14:48)
[2022-10-17] MEDS ORDERED: Morphine 2 MG/ML VIAL SLOW IVP PRN (14:48)
[2022-10-17 15:08] LABS: Lactic Acid 1.8 mmol/L (0.5-2.2)
[2022-10-17 19:52] VITALS: BMI 26.7
[2022-10-17] MEDS: Lactated Ringer's 1,000 ML IV SCH (20:21)
[2022-10-18] MEDS: Lactated Ringer's 1,000 ML IV SCH ×4 (01:35→20:56)
[2022-10-18 06:58] LABS: #Eosinphils 0.4 thou/uL (0.0-0.7); #Lymphocytes 2.6 thou/uL (1.20-3.40); #Monocytes 0.8 thou/uL (0.11-0.59); #Neutrophils 4.6 thou/uL (1.40-6.50); %Basophils 0.3 % (0.0-1.0); %Eosinophils 4.9 % (0.0-10.0); %Lymphocytes 30.7 % (21.0-51.0); %Monocytes 9.4 % (0.0-10.0); %Neutrophils 54.7 % (42.0-75.0); Hemoglobin 13.6 g/dL (14.0-18.0); Mean Corpuscular HGB CONC 33.9 g/dL (32.0-36.0); Mean Corpuscular Hemoglobin 30.2 pg (27.0-31.0); Mean Corpuscular Volume 89.3 fl (78.0-98.0); Mean Platelet Volume 7.3 fL (7.4-10.4); Platelet Count 185 10x3/uL (130-400); RBC Distribution Width 13.1 % (11.5-14.5); White Blood Cell (WBC) Count 8.3 10x3/uL (4.8-10.8)
[2022-10-18 07:20] LABS: Anion Gap 11 mmol/L (10-20); BUN (Urea Nitrogen) 17 mg/dL (8.9-20.6); Calc. Creatinine Clearance 297 mL/min (70-130); Calcium 8.4 mg/dL (7.8-10.44); Carbon Dioxide 23 mmol/L (22-29); Chloride 107 mmol/L (98-107); Estimated GFR 142; Glucose 94 mg/dL (70-105); Potassium 3.7 mmol/L (3.5-5.1); Sodium 137 mmol/L (136-145)
[2022-10-18] MEDS ORDERED: Bisacodyl 10 MG SUPP PR SCH (16:00)
[2022-10-18] MEDS: Metoclopramide HCl 10 MG/2 ML VIAL IVP SCH ×2 (17:14→20:53)
[2022-10-18] MEDS: Senokot S 8.6-50 MG TAB PO SCH (20:53)
[2022-10-18] MEDS: Polyethylene Glycol 3350 17 GM Packet PO SCH (20:53)
[2022-10-19] MEDS: Lactated Ringer's 1,000 ML IV SCH (08:38)
[2022-10-19] MEDS: Polyethylene Glycol 3350 17 GM Packet PO SCH (08:39)
[2022-10-19] MEDS: Senokot S 8.6-50 MG TAB PO SCH (08:39)
[2022-10-19] MEDS: Metoclopramide HCl 10 MG/2 ML VIAL IVP SCH ×2 (08:39→10:40)
[2022-10-19 12:03] VITALS: BP 111/73
[2022-10-19 12:19] VITALS: TEMP 97.7
== END 2022-10-19 12:18 | disposition home or self-care (01) | DRG 388 ==
LOC: ERS 11:06 → ERHOLD 15:22 → T4-B 18:48 → OBSVTOIN 10-18 15:51
PROVIDERS: ADMIT Family Medicine; ATTEND Family Medicine
DX: K56.600 Partial intestinal obstruction, unspecified as to cause (principal); R53.2 Functional quadriplegia; R11.0 Nausea; Z79.899 Other long term (current) drug therapy; Z79.52 Long term (current) use of systemic steroids; Z98.890 Other specified postprocedural states
CPT/HCPCS: 36415; 74018; 74177; 80048; 80053; 81003; 81015; 83605; 83690; 85025; 96361; 96374; 96375; J1650; J2270; J2405; J2765; J7120; Q9967

== ENCOUNTER 2023-06-23 09:30 | Inpatient (IN) | payer OTHER ==
[2023-06-23 10:20] LABS: #Eosinphils 0.2 thou/uL (0.0-0.7); #Monocytes 0.9 thou/uL (0.11-0.59); %Basophils 0.3 % (0.0-1.0); %Eosinophils 1.5 % (0.0-10.0); %Neutrophils 74.8 % (42.0-75.0); Hematocrit 43.7 % (42.0-52.0); Hemoglobin 14.3 g/dL (14.0-18.0); Mean Corpuscular HGB CONC 32.7 g/dL (32.0-36.0); Mean Corpuscular Hemoglobin 28.7 pg (27.0-31.0); Mean Corpuscular Volume 87.6 fl (78.0-98.0); Mean Platelet Volume 10.6 fL (7.4-10.4); Platelet Count 227 10x3/uL (130-400); RBC Distribution Width 13.8 % (11.5-14.5); Red Blood Cell (RBC) Count 4.99 mill/uL (4.70-6.10); White Blood Cell (WBC) Count 10.7 10x3/uL (4.8-10.8)
[2023-06-23] MEDS ORDERED: Ipratropium Bromide 2.5 ml Neb ONE ×3 (10:34→19:26)
[2023-06-23] MEDS ORDERED: Albuterol 2.5 MG (3 mL) NEB ONE ×2 (10:34→13:10)
[2023-06-23] MEDS ORDERED: methylPREDNISolone Sod Succ/PF 125 MG/2 ML VIAL ONE (10:35)
[2023-06-23 10:42] LABS: Troponin I Less than 0.010 ng/mL (< 0.028)
[2023-06-23 10:49] LABS: ALT (SGPT) 46 U/L (8-55); AST (SGOT) 41 U/L (5-34); Albumin 3.9 g/dL (3.5-5.0); Alkaline Phosphatase 95 U/L (40-110); Anion Gap 13 mmol/L (10-20); BUN (Urea Nitrogen) 9 mg/dL (8.9-20.6); Bilirubin, Total 0.8 mg/dL (0.2-1.2); Calc. Creatinine Clearance 0 mL/min (70-130); Calcium 9.1 mg/dL (7.8-10.44); Carbon Dioxide 29 mmol/L (22-29); Chloride 96 mmol/L (98-107); Estimated GFR 130; Globulin 5.9 g/dL (2.4-3.5); Glucose 103 mg/dL (70-105); Magnesium 2.1 mg/dL (1.6-2.6); Protein, Total 9.8 g/dL (6.0-8.3); Sodium 133 mmol/L (136-145)
[2023-06-23] MEDS ORDERED: Iopamidol-370 76% 500 ML MDV (1 ML CHARGE) ONE (11:09)
[2023-06-23 11:17] LABS: Bacteria/HPF None Seen HPF (None Seen); Bilirubin Negative (Negative); Blood, Urine Negative (Negative); CAUTI Indications for Culture Dysuria,urgency,freq; Clarity Extra Turbid (Clear); Glucose, Urine (Dipstick) Normal (Negative); Ketone, Urine 20 mg/dL (Negative); Leukocyte 25 Leu/uL (Negative); Nitrite Negative (Negative); Protein, Urine (Dipstick) 50 mg/dL (Neg-Trace); Specific Gravity, Urine 1.017 (1.002-1.036); Squamous Epithelial None Seen HPF (0-3); Urobilinogen Normal mg/dL (Less than 2); WBC/HPF 21-50 HPF (0-3)
[2023-06-23 11:22] LABS: Urine Culture Reflex Yes Yes
[2023-06-23 11:43] LABS: SARS-CoV-2 NAA Rapid Test Not Detected (NotDetected)
[2023-06-23] MEDS ORDERED: Sodium Chloride 0.9% 100 ML ONE (13:10)
[2023-06-23] MEDS ORDERED: cefTRIAXone (ROCEPHIN) 1 GM VIAL ONE ×2 (13:11→15:40)
[2023-06-23] MEDS ORDERED: Magnesium 2 GM/50 ML BAG (IN WATER) ONE (14:56)
[2023-06-23] MEDS ORDERED: Vancomycin (BATCH) 2 GM in Premix 1 BAG IVPB SCH (16:00)
[2023-06-23] MEDS ORDERED: Ondansetron ODT 4 MG TAB PO PRN (17:19)
[2023-06-23] MEDS ORDERED: Albuterol 2.5 MG (3 mL) NEB NEB PRN (17:19)
[2023-06-23] MEDS: methylPREDNISolone Sod Succ 40 MG VIAL IVP SCH (18:09)
[2023-06-23] MEDS ORDERED: methylPREDNISolone Sod Succ 40 MG VIAL ONE (18:10)
[2023-06-23] MEDS ORDERED: Albuterol 2.5 MG (0.5 mL) NEB ONE (19:26)
[2023-06-23] MEDS: Ipratropium/Albuterol 3 ML NEB NEB SCH ×2 (19:30→22:00)
[2023-06-23 20:13] VITALS: BMI 25.7
[2023-06-23] MEDS: Acetaminophen 325 MG TAB PO PRN (20:14)
[2023-06-23] MEDS ORDERED: Acetaminophen 325 MG TAB ONE (20:16)
[2023-06-23] MEDS ORDERED: Ondansetron PF 4 MG/2 ML Vial ONE (20:39)
[2023-06-23] MEDS: guaiFENesin/DM ER PO SCH (20:43)
[2023-06-23] MEDS: Ondansetron PF 4 MG/2 ML Vial IVP PRN (20:43)
[2023-06-23] MEDS ORDERED: Ipratropium/Albuterol 3 ML NEB ONE (22:03)
[2023-06-24] MEDS ORDERED: methylPREDNISolone Sod Succ 40 MG VIAL ONE ×2 (01:49→06:16)
[2023-06-24] MEDS: methylPREDNISolone Sod Succ 40 MG VIAL IVP SCH ×2 (01:51→06:20)
[2023-06-24] MEDS ORDERED: Simethicone Chewable 80 MG TAB PO PRN (01:51)
[2023-06-24] MEDS ORDERED: Lidocaine 2% Viscous Solution 10 ML, Aluminum & Magnesium Hydroxide 30 ML SSW SCH (02:15)
[2023-06-24] MEDS ORDERED: Ondansetron PF 4 MG/2 ML Vial ONE (02:21)
[2023-06-24] MEDS: Ondansetron PF 4 MG/2 ML Vial IVP PRN (02:35)
[2023-06-24] MEDS: Ipratropium/Albuterol 3 ML NEB NEB SCH ×6 (02:58→23:00)
[2023-06-24] MEDS: Vancomycin (BATCH) 1.25 GM in Premix 1 BAG IVPB SCH ×2 (03:05→12:24)
[2023-06-24] MEDS ORDERED: Pantoprazole 40 MG VIAL IVP SCH (04:45)
[2023-06-24] MEDS ORDERED: Metoclopramide HCl 10 MG (2 mL) VIAL IVP SCH (04:45)
[2023-06-24] MEDS ORDERED: Pantoprazole 40 MG VIAL ONE (04:46)
[2023-06-24] MEDS ORDERED: Metoclopramide HCl 10 MG (2 mL) VIAL ONE (04:46)
[2023-06-24] MEDS ORDERED: Promethazine HCl 25 MG in Sodium Chloride 0.9% 50 ML IVPB PRN (06:18)
[2023-06-24] MEDS ORDERED: Prochlorperazine 10 MG/2 ML VIAL ONE (06:35)
[2023-06-24] MEDS ORDERED: Prochlorperazine Edisylate 10 MG in Sodium Chloride 0.9% 50 ML IVPB SCH (07:00)
[2023-06-24] MEDS ORDERED: Ipratropium/Albuterol 3 ML NEB ONE (07:27)
[2023-06-24] MEDS ORDERED: Enoxaparin 40 MG (0.4 mL) SYRINGE ONE (07:48)
[2023-06-24] MEDS: Enoxaparin 40 MG (0.4 mL) SYRINGE SC SCH (07:50)
[2023-06-24] MEDS: guaiFENesin/DM ER PO SCH ×2 (09:39→20:50)
[2023-06-24 11:01] LABS: #Monocytes 0.4 thou/uL (0.11-0.59); #Neutrophils 5.6 thou/uL (1.40-6.50); %Basophils 0.1 % (0.0-1.0); %Lymphocytes 10.4 % (21.0-51.0); %Monocytes 5.9 % (0.0-10.0); %Neutrophils 82.9 % (42.0-75.0); Hematocrit 37.7 % (42.0-52.0); Hemoglobin 11.9 g/dL (14.0-18.0); Mean Corpuscular HGB CONC 31.6 g/dL (32.0-36.0); Mean Corpuscular Hemoglobin 28.8 pg (27.0-31.0); Mean Corpuscular Volume 91.3 fl (78.0-98.0); Mean Platelet Volume 9.7 fL (7.4-10.4); Platelet Count 215 10x3/uL (130-400); RBC Distribution Width 13.6 % (11.5-14.5); Red Blood Cell (RBC) Count 4.13 mill/uL (4.70-6.10); White Blood Cell (WBC) Count 6.7 10x3/uL (4.8-10.8)
[2023-06-24 12:31] LABS: Calcium 8.1 mg/dL (7.8-10.44); Chloride 106 mmol/L (98-107); Potassium 3.7 mmol/L (3.5-5.1); Sodium 136 mmol/L (136-145)
[2023-06-24 12:32] LABS: Glucose 168 mg/dL (70-105)
[2023-06-24 12:33] LABS: Carbon Dioxide 21 mmol/L (22-29)
[2023-06-24 12:35] LABS: Calc. Creatinine Clearance 265 mL/min (70-130); Estimated GFR 138
[2023-06-24 12:36] LABS: BUN (Urea Nitrogen) 14 mg/dL (8.9-20.6)
[2023-06-24 13:52] LABS: Anion Gap 13 mmol/L (10-20)
[2023-06-24] MEDS ORDERED: Promethazine HCl 12.5 MG in Sodium Chloride 0.9% 50 ML IVPB PRN (14:30)
[2023-06-24] MEDS ORDERED: Metoclopramide HCl 10 MG (2 mL) VIAL IVP PRN (14:51)
[2023-06-24] MEDS: cefTRIAXone\\ROCEPHIN 1 GM in Sodium Chloride 0.9% 100 ML IVPB SCH (17:27)
[2023-06-24] MEDS: Acetaminophen 325 MG TAB PO PRN (20:49)
[2023-06-25] MEDS: Ipratropium/Albuterol 3 ML NEB NEB SCH ×6 (02:03→23:00)
[2023-06-25] MEDS: guaiFENesin/DM ER PO SCH ×2 (08:48→20:26)
[2023-06-25] MEDS: Enoxaparin 40 MG (0.4 mL) SYRINGE SC SCH (08:49)
[2023-06-25] MEDS: Pantoprazole 40 MG VIAL IVP SCH (08:49)
[2023-06-25] MEDS: predniSONE 20 MG TAB PO SCH (08:49)
[2023-06-25 12:36] LABS: #Monocytes 0.4 thou/uL (0.11-0.59); %Eosinophils 0.2 % (0.0-10.0); %Lymphocytes 14.3 % (21.0-51.0); %Monocytes 6.3 % (0.0-10.0); %Neutrophils 78.6 % (42.0-75.0); Hematocrit 36.6 % (42.0-52.0); Hemoglobin 11.7 g/dL (14.0-18.0); Mean Corpuscular Hemoglobin 28.7 pg (27.0-31.0); Mean Corpuscular Volume 89.9 fl (78.0-98.0); Mean Platelet Volume 9.6 fL (7.4-10.4); Platelet Count 169 10x3/uL (130-400); RBC Distribution Width 13.4 % (11.5-14.5); Red Blood Cell (RBC) Count 4.07 mill/uL (4.70-6.10); White Blood Cell (WBC) Count 6.3 10x3/uL (4.8-10.8)
[2023-06-25 13:08] LABS: Anion Gap 12 mmol/L (10-20); BUN (Urea Nitrogen) 11 mg/dL (8.9-20.6); Calc. Creatinine Clearance 265 mL/min (70-130); Calcium 8.5 mg/dL (7.8-10.44); Carbon Dioxide 24 mmol/L (22-29); Chloride 105 mmol/L (98-107); Estimated GFR 138; Glucose 112 mg/dL (70-105); Magnesium 2.1 mg/dL (1.6-2.6); Potassium 3.9 mmol/L (3.5-5.1); Sodium 137 mmol/L (136-145)
[2023-06-25] MEDS: cefTRIAXone\\ROCEPHIN 1 GM in Sodium Chloride 0.9% 100 ML IVPB SCH (16:19)
[2023-06-25] MEDS ORDERED: Polyethylene Glycol 3350 17 GM Packet PO SCH (20:00)
[2023-06-26] MEDS: Ipratropium/Albuterol 3 ML NEB NEB SCH ×6 (02:15→23:00)
[2023-06-26 05:31] LABS: #Monocytes 0.8 thou/uL (0.11-0.59); #Neutrophils 3.8 thou/uL (1.40-6.50); %Basophils 0.3 % (0.0-1.0); %Eosinophils 0.3 % (0.0-10.0); %Lymphocytes 30.8 % (21.0-51.0); %Monocytes 11.4 % (0.0-10.0); %Neutrophils 56.2 % (42.0-75.0); Hematocrit 39.4 % (42.0-52.0); Hemoglobin 12.4 g/dL (14.0-18.0); Mean Corpuscular HGB CONC 31.5 g/dL (32.0-36.0); Mean Corpuscular Hemoglobin 28.1 pg (27.0-31.0); Mean Corpuscular Volume 89.1 fl (78.0-98.0); Platelet Count 227 10x3/uL (130-400); RBC Distribution Width 13.5 % (11.5-14.5); Red Blood Cell (RBC) Count 4.42 mill/uL (4.70-6.10); White Blood Cell (WBC) Count 6.8 10x3/uL (4.8-10.8)
[2023-06-26 06:38] LABS: Anion Gap 9 mmol/L (10-20); BUN (Urea Nitrogen) 10 mg/dL (8.9-20.6); Calc. Creatinine Clearance 235 mL/min (70-130); Calcium 8.7 mg/dL (7.8-10.44); Carbon Dioxide 27 mmol/L (22-29); Chloride 104 mmol/L (98-107); Estimated GFR 133; Glucose 92 mg/dL (70-105); Magnesium 2.1 mg/dL (1.6-2.6); Potassium 3.4 mmol/L (3.5-5.1); Sodium 137 mmol/L (136-145)
[2023-06-26] MEDS ORDERED: Potassium Chloride 20 MEQ TAB PO SCH (07:45)
[2023-06-26] MEDS: Pantoprazole 40 MG VIAL IVP SCH (07:49)
[2023-06-26] MEDS: guaiFENesin/DM ER PO SCH ×2 (07:49→21:26)
[2023-06-26] MEDS: Enoxaparin 40 MG (0.4 mL) SYRINGE SC SCH (07:50)
[2023-06-26] MEDS: predniSONE 20 MG TAB PO SCH (07:54)
[2023-06-26] MEDS: Polyethylene Glycol 3350 17 GM Packet PO SCH (08:13)
[2023-06-26] MEDS ORDERED: Bisacodyl 10 MG SUPP PR SCH (12:30)
[2023-06-26] MEDS: Acetaminophen 325 MG TAB PO PRN (17:18)
[2023-06-26] MEDS: cefTRIAXone\\ROCEPHIN 1 GM in Sodium Chloride 0.9% 100 ML IVPB SCH (17:19)
[2023-06-26 23:38] VITALS: TEMP 97.8
[2023-06-27] MEDS: Ipratropium/Albuterol 3 ML NEB NEB SCH ×3 (03:23→11:23)
[2023-06-27 04:27] LABS: #Basophils 0.1 thou/uL (0.0-0.2); #Eosinphils 0.1 thou/uL (0.0-0.7); #Monocytes 0.8 thou/uL (0.11-0.59); #Neutrophils 3.6 thou/uL (1.40-6.50); %Basophils 0.7 % (0.0-1.0); %Eosinophils 1.1 % (0.0-10.0); %Lymphocytes 34.3 % (21.0-51.0); %Monocytes 11.8 % (0.0-10.0); %Neutrophils 51.4 % (42.0-75.0); Hematocrit 40.5 % (42.0-52.0); Hemoglobin 12.8 g/dL (14.0-18.0); Mean Corpuscular HGB CONC 31.6 g/dL (32.0-36.0); Mean Corpuscular Hemoglobin 28.4 pg (27.0-31.0); Mean Platelet Volume 9.9 fL (7.4-10.4); Platelet Count 209 10x3/uL (130-400); RBC Distribution Width 13.7 % (11.5-14.5)
[2023-06-27 05:15] LABS: Anion Gap 9 mmol/L (10-20); BUN (Urea Nitrogen) 12 mg/dL (8.9-20.6); Calc. Creatinine Clearance 283 mL/min (70-130); Calcium 8.6 mg/dL (7.8-10.44); Carbon Dioxide 26 mmol/L (22-29); Chloride 103 mmol/L (98-107); Estimated GFR 141; Glucose 93 mg/dL (70-105); Sodium 134 mmol/L (136-145)
[2023-06-27] MEDS: Polyethylene Glycol 3350 17 GM Packet PO SCH (09:17)
[2023-06-27] MEDS: Enoxaparin 40 MG (0.4 mL) SYRINGE SC SCH (09:18)
[2023-06-27] MEDS: predniSONE 20 MG TAB PO SCH (09:18)
[2023-06-27] MEDS: guaiFENesin/DM ER PO SCH (09:18)
[2023-06-27] MEDS: Pantoprazole 40 MG VIAL IVP SCH (09:23)
[2023-06-27 10:39] VITALS: BP 128/76
== END 2023-06-27 11:33 | disposition home or self-care (01) | DRG 202 ==
LOC: ERS 09:30 → ERHOLD 17:12 → 2NO 06-24 12:05
PROVIDERS: ADMIT Family Medicine; ATTEND Internal Medicine
DX: J45.901 Unspecified asthma with (acute) exacerbation (principal); G82.50 Quadriplegia, unspecified; F32.A Depression, unspecified; E87.1 Hypo-osmolality and hyponatremia; Z98.890 Other specified postprocedural states; Z79.82 Long term (current) use of aspirin; Z79.899 Other long term (current) drug therapy; Z11.52 Encounter for screening for COVID-19; K59.00 Constipation, unspecified
CPT/HCPCS: 36415; 71045; 74177; 80048; 80053; 81001; 83605; 83735; 83880; 84484; 85025; 87040; 87077; 87081; 87086; 87186; 93005; 94640; 94644; 96361; 96365; 96366; 96367; 96375; 97139; C9113; J0696; J0780; J1650; J2405; J2765; J2920; J2930; J3370; J3475; J3490; J7512; J7611; J7620; Q9967

== ENCOUNTER 2023-12-31 14:31 | Inpatient (IN) | payer OTHER ==
[2023-12-31] MEDS ORDERED: Sodium Chloride 0.9% 100 ML ONE (15:09)
[2023-12-31] MEDS ORDERED: Cefepime 2 GM VIAL ONE (15:09)
[2023-12-31 15:40] LABS: #Basophils 0.03 10x3/uL (0.0-0.2); %Basophils 0.3 % (0.0-1.0); %Eosinophils 2.8 % (0.0-10.0); %Lymphocytes 20.2 % (21.0-51.0); %Monocytes 8.5 % (0.0-10.0); %Neutrophils 67.8 % (42.0-75.0); Hematocrit 41.2 % (42.0-52.0); Hemoglobin 13.6 g/dL (14.0-18.0); Mean Corpuscular Hemoglobin 28.7 pg (27.0-31.0); Mean Corpuscular Volume 86.9 fL (78.0-98.0); Mean Platelet Volume 9.3 fL (7.4-10.4); Platelet Count 272 10x3/uL (130-400); RBC Distribution Width 13.9 % (11.5-14.5); Red Blood Cell (RBC) Count 4.74 mill/uL (4.70-6.10)
[2023-12-31 15:57] LABS: ALT (SGPT) 26 U/L (8-55); AST (SGOT) 18 U/L (5-34); Albumin 3.2 g/dL (3.5-5.0); Alkaline Phosphatase 105 U/L (40-110); Anion Gap 14 mmol/L (10-20); BUN (Urea Nitrogen) 17 mg/dL (8.9-20.6); Bilirubin, Total 0.4 mg/dL (0.2-1.2); Calc. Creatinine Clearance 0 mL/min (70-130); Calcium 9.3 mg/dL (7.8-10.44); Carbon Dioxide 23 mmol/L (22-29); Chloride 103 mmol/L (98-107); Estimated GFR 134; Globulin 5.1 g/dL (2.4-3.5); Glucose 119 mg/dL (70-105); Potassium 3.7 mmol/L (3.5-5.1); Protein, Total 8.3 g/dL (6.0-8.3); Sodium 136 mmol/L (136-145)
[2023-12-31] MEDS ORDERED: Ondansetron ODT 4 MG TAB PO PRN (17:13)
[2023-12-31] MEDS ORDERED: Acetaminophen 650 MG Suppository PR PRN (17:13)
[2023-12-31] MEDS ORDERED: Ondansetron PF 4 MG/2 ML Vial IVP PRN (17:13)
[2023-12-31] MEDS ORDERED: Acetaminophen 500 MG TAB ONE (17:14)
[2023-12-31 17:38] LABS: Bacteria/HPF 3+ HPF (None Seen); Bilirubin Negative (Negative); Blood, Urine Negative (Negative); CAUTI Indications for Culture Alt mental st,lethar; Clarity Extra Turbid (Clear); Glucose, Urine (Dipstick) Normal (Negative); Ketone, Urine Negative (Negative); Leukocyte 250 Leu/uL (Negative); Nitrite 2+ (Negative); Protein, Urine (Dipstick) 100 mg/dL (Neg-Trace); RBC/HPF 0-3 HPF (0-3); Squamous Epithelial None Seen HPF (0-3); Triple Phosphate Crystal Rare HPF (None Seen); Urobilinogen Normal mg/dL (Less than 2)
[2023-12-31 17:39] LABS: WBC/HPF 21-50 HPF (0-3)
[2023-12-31 17:40] LABS: Urine Culture Reflex Yes Yes
[2023-12-31] MEDS ORDERED: Ketorolac Tromethamine 30 MG (1 mL) VIAL IVP PRN (18:00)
[2023-12-31] MEDS: Vancomycin (BATCH) 2 GM in Premix 1 BAG IVPB SCH (19:49)
[2023-12-31] MEDS: Sodium Chloride 0.9% 1,000 ML IV SCH (19:50)
[2023-12-31] MEDS: traMADol HCl 50 MG TAB PO PRN (20:04)
[2023-12-31 20:34] LABS: Lactic Acid 2.1 mmol/L (0.5-2.2)
[2023-12-31 20:39] VITALS: BMI 27.8
[2023-12-31] MEDS ORDERED: Famotidine 20 MG TAB PO SCH (21:00)
[2023-12-31] MEDS: Vancomycin 1 GM in Premix 1 BAG IVPB SCH (22:30)
[2024-01-01] MEDS: Vancomycin (BATCH) 1.25 GM in Premix 1 BAG IVPB SCH (00:04)
[2024-01-01] MEDS: Acetaminophen 325 MG TAB PO PRN (00:19)
[2024-01-01] MEDS: Sodium Chloride 0.9% 500 ML IV SCH (04:15)
[2024-01-01] MEDS: Cefepime 2 GM in Sodium Chloride 0.9% 100 ML IVPB SCH (04:15)
[2024-01-01 05:05] LABS: #Basophils Less than 0.03 10x3/uL (0.0-0.2); %Basophils 0.2 % (0.0-1.0); %Lymphocytes 19.1 % (21.0-51.0); %Monocytes 8.1 % (0.0-10.0); %Neutrophils 70.2 % (42.0-75.0); Hematocrit 33.9 % (42.0-52.0); Mean Corpuscular HGB CONC 32.4 g/dL (32.0-36.0); Mean Corpuscular Hemoglobin 27.7 pg (27.0-31.0); Mean Corpuscular Volume 85.4 fL (78.0-98.0); Mean Platelet Volume 9.7 fL (7.4-10.4); Platelet Count 205 10x3/uL (130-400); RBC Distribution Width 13.8 % (11.5-14.5); Red Blood Cell (RBC) Count 3.97 mill/uL (4.70-6.10)
[2024-01-01 05:14] LABS: Anion Gap 11 mmol/L (10-20); BUN (Urea Nitrogen) 7 mg/dL (8.9-20.6); Calc. Creatinine Clearance 321 mL/min (70-130); Calcium 8.2 mg/dL (7.8-10.44); Carbon Dioxide 21 mmol/L (22-29); Chloride 109 mmol/L (98-107); Estimated GFR 143; Glucose 141 mg/dL (70-105); Potassium 3.2 mmol/L (3.5-5.1); Sodium 138 mmol/L (136-145)
[2024-01-01 05:17] LABS: Vancomycin, Random 22.5 ug/mL (See Comment)
[2024-01-01] MEDS: Citalopram 20 MG TAB PO SCH (09:30)
[2024-01-01] MEDS: Pantoprazole DR 40 MG TAB PO SCH (09:30)
[2024-01-01] MEDS: Enoxaparin 40 MG (0.4 mL) SYRINGE SC SCH (09:30)
[2024-01-02 05:58] LABS: Vancomycin, Random 25.9 ug/mL (See Comment)
[2024-01-02] MEDS ORDERED: Midazolam HCl 2 mg/2 ml Vial ONE (09:14)
[2024-01-02] MEDS ORDERED: Lidocaine 2% PF 5 ML VIAL ONE (09:14)
[2024-01-02] MEDS ORDERED: Rocuronium Bromide 10 MG/ML (10ML VIAL) ONE (09:14)
[2024-01-02] MEDS ORDERED: PROPOFOL 20 ML ONE (09:14)
[2024-01-02] MEDS ORDERED: fentaNYL PF 100 MCG/2 ML SYRINGE ONE (09:14)
[2024-01-02] MEDS ORDERED: PHENYLEPHRINE-NS 100 MCG/ML 10 ML SYRINGE ONE (09:56)
[2024-01-02] MEDS ORDERED: Ondansetron PF 4 MG/2 ML Vial ONE (10:15)
[2024-01-02] MEDS ORDERED: Dexamethasone 4 mg/ml Vial ONE (10:15)
[2024-01-02] MEDS ORDERED: SUGAMMADEX SODIUM 200 MG/2 ML VIAL ONE (10:16)
[2024-01-02 11:06] VITALS: BMI 27.8
[2024-01-02] MEDS: Potassium Chloride 20 MEQ TAB PO SCH (13:54)
[2024-01-02 15:04] LABS: #Basophils Less than 0.03 10x3/uL (0.0-0.2); %Basophils 0.2 % (0.0-1.0); %Eosinophils 0.7 % (0.0-10.0); %Lymphocytes 10.7 % (21.0-51.0); %Monocytes 1.4 % (0.0-10.0); %Neutrophils 86.7 % (42.0-75.0); Hematocrit 35.5 % (42.0-52.0); Hemoglobin 11.8 g/dL (14.0-18.0); Mean Corpuscular HGB CONC 33.2 g/dL (32.0-36.0); Mean Corpuscular Hemoglobin 29.1 pg (27.0-31.0); Mean Corpuscular Volume 87.4 fL (78.0-98.0); Mean Platelet Volume 9.5 fL (7.4-10.4); Platelet Count 182 10x3/uL (130-400); RBC Distribution Width 13.7 % (11.5-14.5); Red Blood Cell (RBC) Count 4.06 mill/uL (4.70-6.10)
[2024-01-02 16:09] LABS: Platelet Adequacy Comment Platelets Normal; RBC Morphology Within Normal Limits
[2024-01-02] MEDS: Ipratropium/Albuterol 3 ML NEB NEB PRN (19:05)
[2024-01-02] MEDS: Vancomycin (BATCH) 1.75 GM in Premix 1 BAG IVPB SCH (22:07)
[2024-01-03 06:20] LABS: #Basophils Less than 0.03 10x3/uL (0.0-0.2); #Eosinphils Less than 0.03 10x3/uL (0.0-0.7); %Basophils 0.1 % (0.0-1.0); %Eosinophils 0.3 % (0.0-10.0); %Lymphocytes 18.8 % (21.0-51.0); %Neutrophils 66.4 % (42.0-75.0); Hematocrit 32.7 % (42.0-52.0); Hemoglobin 10.6 g/dL (14.0-18.0); Mean Corpuscular HGB CONC 32.4 g/dL (32.0-36.0); Mean Corpuscular Hemoglobin 28.3 pg (27.0-31.0); Mean Corpuscular Volume 87.4 fL (78.0-98.0); Mean Platelet Volume 9.4 fL (7.4-10.4); Platelet Count 234 10x3/uL (130-400); RBC Distribution Width 13.5 % (11.5-14.5); Red Blood Cell (RBC) Count 3.74 mill/uL (4.70-6.10)
[2024-01-03] MEDS: Potassium Chloride 20 MEQ TAB PO SCH (08:40)
[2024-01-04 05:59] LABS: #Basophils 0.03 10x3/uL (0.0-0.2); %Basophils 0.6 % (0.0-1.0); %Eosinophils 2.5 % (0.0-10.0); %Lymphocytes 40.7 % (21.0-51.0); %Monocytes 10.9 % (0.0-10.0); %Neutrophils 44.9 % (42.0-75.0); Hematocrit 34.5 % (42.0-52.0); Hemoglobin 10.7 g/dL (14.0-18.0); Mean Corpuscular Hemoglobin 27.7 pg (27.0-31.0); Mean Corpuscular Volume 89.4 fL (78.0-98.0); Mean Platelet Volume 9.5 fL (7.4-10.4); Platelet Count 197 10x3/uL (130-400); RBC Distribution Width 14.1 % (11.5-14.5); Red Blood Cell (RBC) Count 3.86 mill/uL (4.70-6.10)
[2024-01-04 06:25] LABS: Vancomycin, Random 28.6 ug/mL (See Comment)
[2024-01-04] MEDS: Ibuprofen 200 MG TAB PO PRN (09:02)
[2024-01-04] MEDS: Vancomycin (BATCH) 1.25 GM in Premix 1 BAG IVPB SCH (11:18)
[2024-01-05 06:23] LABS: Vancomycin, Random 19.4 ug/mL (See Comment)
[2024-01-05 06:26] LABS: Anion Gap 9 mmol/L (10-20); BUN (Urea Nitrogen) 9 mg/dL (8.9-20.6); Calc. Creatinine Clearance 354 mL/min (70-130); Calcium 8.5 mg/dL (7.8-10.44); Carbon Dioxide 27 mmol/L (22-29); Chloride 102 mmol/L (98-107); Estimated GFR 147; Glucose 89 mg/dL (70-105); Potassium 3.8 mmol/L (3.5-5.1); Sodium 134 mmol/L (136-145)
[2024-01-05] MEDS: Polyethylene Glycol 3350 17 GM Packet PO SCH (12:27)
[2024-01-05] MEDS: Bisacodyl 10 MG SUPP PR SCH (13:49)
[2024-01-05] MEDS: Vancomycin (BATCH) 1.5 GM in Premix 1 BAG IVPB SCH (23:31)
[2024-01-06] MEDS: Vancomycin (BATCH) 1.5 GM/300 ML BAG ONE (11:13)
[2024-01-06] MEDS: Bisacodyl 10 MG SUPP PR PRN (16:01)
[2024-01-06] MEDS: Polyethylene Glycol 3350 17 GM Packet PO PRN (16:01)
[2024-01-07 07:16] LABS: Vancomycin, Random 24.5 ug/mL (See Comment)
[2024-01-07 07:17] LABS: Anion Gap 12 mmol/L (10-20); BUN (Urea Nitrogen) 9 mg/dL (8.9-20.6); Calc. Creatinine Clearance 345 mL/min (70-130); Calcium 8.9 mg/dL (7.8-10.44); Carbon Dioxide 25 mmol/L (22-29); Chloride 103 mmol/L (98-107); Estimated GFR 146; Glucose 104 mg/dL (70-105); Sodium 136 mmol/L (136-145)
[2024-01-09 06:17] LABS: Hematocrit 36.5 % (42.0-52.0); Hemoglobin 11.5 g/dL (14.0-18.0); Mean Corpuscular HGB CONC 31.5 g/dL (32.0-36.0); Mean Corpuscular Hemoglobin 28.8 pg (27.0-31.0); Mean Corpuscular Volume 91.5 fL (78.0-98.0); Mean Platelet Volume 10.6 fL (7.4-10.4); Platelet Count 177 10x3/uL (130-400); RBC Distribution Width 14.5 % (11.5-14.5); Red Blood Cell (RBC) Count 3.99 mill/uL (4.70-6.10)
[2024-01-09 06:42] LABS: Anion Gap 12 mmol/L (10-20); BUN (Urea Nitrogen) 8 mg/dL (8.9-20.6); Calc. Creatinine Clearance 299 mL/min (70-130); Calcium 8.8 mg/dL (7.8-10.44); Carbon Dioxide 21 mmol/L (22-29); Chloride 106 mmol/L (98-107); Estimated GFR 140; Glucose 95 mg/dL (70-105); Potassium 4.8 mmol/L (3.5-5.1); Sodium 134 mmol/L (136-145)
[2024-01-09] MEDS ORDERED: Rocuronium Bromide 10 MG/ML (10ML VIAL) ONE (07:18)
[2024-01-09] MEDS ORDERED: Dexamethasone 20 MG/5 ML VIAL ONE (07:18)
[2024-01-09] MEDS ORDERED: SUGAMMADEX SODIUM 200 MG/2 ML VIAL ONE ×2 (07:18→08:26)
[2024-01-09] MEDS ORDERED: Ondansetron PF 4 MG/2 ML Vial ONE (07:18)
[2024-01-09] MEDS ORDERED: PROPOFOL 20 ML ONE (07:18)
[2024-01-09] MEDS ORDERED: Midazolam HCl 2 mg/2 ml Vial ONE (07:18)
[2024-01-09] MEDS ORDERED: Lidocaine 1% PF 5 ML VIAL ONE (07:18)
[2024-01-09] MEDS ORDERED: fentaNYL PF 100 MCG/2 ML SYRINGE ONE (07:18)
[2024-01-09] MEDS ORDERED: cefOXitin 2 GM VIAL ONE (07:20)
[2024-01-09] MEDS ORDERED: Sodium Chloride 0.9% 100 ML ONE (07:20)
[2024-01-09] MEDS ORDERED: PHENYLEPHRINE-NS 100 MCG/ML 10 ML SYRINGE ONE (07:46)
[2024-01-09] MEDS ORDERED: Glycopyrrolate 0.2 MG/ML 5 ML SYRINGE ONE (08:07)
[2024-01-09] MEDS ORDERED: ePHEDrine Sulfate 50 MG/10 ML VIAL ONE (08:09)
[2024-01-09] MEDS ORDERED: fentaNYL 50 mcg/mL 1 mL Vial ONE (08:48)
[2024-01-09] MEDS ORDERED: HYDROmorphone 0.5 MG/0.5 ML SYRINGE ONE (08:48)
[2024-01-09] MEDS: Adalimumab [Humira Pen] 40 MG/0.8 ML Pen.Ij.Kit SC SCH (14:46)
[2024-01-10 07:37] VITALS: BP 114/67; TEMP 97.6
[2024-01-10] MEDS: Vancomycin (BATCH) 1.5 GM/300 ML BAG ONE (11:24)
== END 2024-01-10 16:12 | disposition home or self-care (01) | DRG 853 ==
LOC: ERS 14:31 → 2NO 17:19 → SURG A 01-02 09:40 → T4-A 01-02 12:27
PROVIDERS: ADMIT Hospitalist; ATTEND Internal Medicine
PROC: 3E03329 Introduction of Other Anti-infective into Peripheral Vein, Percutaneous Approach (ICD-10-PCS; 2023-12-31)
PROC: 0JB70ZZ Excision of Back Subcutaneous Tissue and Fascia, Open Approach (ICD-10-PCS; 2024-01-02)
PROC: 0JB70ZZ Excision of Back Subcutaneous Tissue and Fascia, Open Approach (ICD-10-PCS; principal; 2024-01-09)
DX: A41.9 Sepsis, unspecified organism (principal); G82.50 Quadriplegia, unspecified; L89.154 Pressure ulcer of sacral region, stage 4; F41.9 Anxiety disorder, unspecified; Z79.899 Other long term (current) drug therapy; Z98.890 Other specified postprocedural states; F32.A Depression, unspecified; E87.6 Hypokalemia; D64.9 Anemia, unspecified
CPT/HCPCS: 36415; 80048; 80053; 80202; 81001; 82565; 83605; 85025; 85027; 87040; 87086; 94640; 96374; 96375; 97139; J0692; J0694; J1100; J1170; J1650; J2001; J2250; J2405; J2704; J3010; J3370; J3490; J7030; J7050; J7620

== ENCOUNTER 2024-01-15 15:31 | Inpatient (IN) | payer OTHER ==
[2024-01-15 16:54] LABS: #Basophils 0.06 10x3/uL (0.0-0.2); #Eosinphils Less than 0.03 10x3/uL (0.0-0.7); %Basophils 0.3 % (0.0-1.0); %Eosinophils 0.1 % (0.0-10.0); %Lymphocytes 15.1 % (21.0-51.0); %Monocytes 10.9 % (0.0-10.0); %Neutrophils 73.1 % (42.0-75.0); Hematocrit 45.2 % (42.0-52.0); Hemoglobin 14.9 g/dL (14.0-18.0); Mean Corpuscular Hemoglobin 28.2 pg (27.0-31.0); Mean Corpuscular Volume 85.4 fL (78.0-98.0); Mean Platelet Volume 9.6 fL (7.4-10.4); Platelet Count 400 10x3/uL (130-400); RBC Distribution Width 14.9 % (11.5-14.5); Red Blood Cell (RBC) Count 5.29 mill/uL (4.70-6.10)
[2024-01-15 17:11] LABS: ALT (SGPT) 43 U/L (8-55); AST (SGOT) 51 U/L (5-34); Albumin 3.7 g/dL (3.5-5.0); Alkaline Phosphatase 119 U/L (40-110); Anion Gap 17 mmol/L (10-20); BUN (Urea Nitrogen) 10 mg/dL (8.9-20.6); Bilirubin, Total 0.6 mg/dL (0.2-1.2); Calc. Creatinine Clearance 0 mL/min (70-130); Calcium 9.7 mg/dL (7.8-10.44); Carbon Dioxide 22 mmol/L (22-29); Chloride 100 mmol/L (98-107); Estimated GFR 133; Globulin 5.1 g/dL (2.4-3.5); Glucose 92 mg/dL (70-105); Lipase 17 U/L (8-78); Magnesium 1.8 mg/dL (1.6-2.6); Potassium 4.6 mmol/L (3.5-5.1); Protein, Total 8.8 g/dL (6.0-8.3); Sodium 134 mmol/L (136-145)
[2024-01-15] MEDS ORDERED: Morphine 4 MG/ML VIAL ONE ×2 (17:17→17:26)
[2024-01-15] MEDS ORDERED: NOREPINEPHRINE 8 MG/250 ML-D5W 250 ML ONE (17:42)
[2024-01-15] MEDS ORDERED: Sodium Chloride 0.9% 100 ML ONE (17:51)
[2024-01-15] MEDS ORDERED: metroNIDAZOLE 500 MG (100 mL) BAG ONE (17:51)
[2024-01-15] MEDS ORDERED: Piperacillin/Tazobactam 4.5 GM VIAL ONE (17:51)
[2024-01-15] MEDS ORDERED: Acetaminophen 500 MG TAB ONE (17:51)
[2024-01-15] MEDS ORDERED: Ondansetron ODT 4 MG TAB SL PRN (19:37)
[2024-01-15] MEDS ORDERED: Ondansetron PF 4 MG/2 ML Vial IVP PRN (19:37)
[2024-01-15] MEDS ORDERED: Acetaminophen 325 MG TAB PO PRN (19:37)
[2024-01-15] MEDS ORDERED: Acetaminophen 650 MG Suppository PR PRN (20:09)
[2024-01-15] MEDS ORDERED: NOREPINEPHRINE 8 MG/250 ML-D5W 250 ML IVPB SCH (20:15)
[2024-01-15 21:59] LABS: Bilirubin Negative (Negative); Blood, Urine Negative (Negative); CAUTI Indications for Culture Dysuria,urgency,freq; Clarity Clear (Clear); Glucose, Urine (Dipstick) Normal (Negative); Ketone, Urine 60 mg/dL (Negative); Leukocyte Negative Leu/uL (Negative); Nitrite Negative (Negative); Protein, Urine (Dipstick) 30 mg/dL (Neg-Trace); RBC/HPF Greater than 50 HPF (0-3); Specific Gravity, Urine 1.049 (1.002-1.036); Squamous Epithelial None Seen HPF (0-3); Urobilinogen Normal mg/dL (Less than 2); Yeast-Budding 4+ HPF (None Seen); pH, Urine 6.5 (5.0-9.0)
[2024-01-15 22:06] LABS: Bacteria/HPF 1+ HPF (None Seen); Urine Culture Reflex Yes Yes; Yeast-Hyphae 1+ HPF (None Seen)
[2024-01-15] MEDS: Hydrocortisone Sod Succ/PF 100 mg/2 ml Vial IVP SCH (22:14)
[2024-01-15] MEDS: Sodium Chloride 0.9% 1,000 ML IV SCH (22:15)
[2024-01-15] MEDS: Vancomycin (BATCH) 2 GM in Premix 1 BAG IVPB SCH (22:15)
[2024-01-15] MEDS: Piperacillin/Tazobactam 3.375 GM in Sodium Chloride 0.9% 100 ML IVPB SCH (22:55)
[2024-01-16] MEDS: Ipratropium/Albuterol 3 ML NEB NEB PRN (01:10)
[2024-01-16 04:56] LABS: #Basophils Less than 0.03 10x3/uL (0.0-0.2); #Eosinphils Less than 0.03 10x3/uL (0.0-0.7); %Basophils 0.2 % (0.0-1.0); %Eosinophils 0.1 % (0.0-10.0); %Lymphocytes 10.5 % (21.0-51.0); %Monocytes 7.1 % (0.0-10.0); %Neutrophils 81.6 % (42.0-75.0); Hematocrit 36.6 % (42.0-52.0); Hemoglobin 11.7 g/dL (14.0-18.0); Mean Corpuscular Hemoglobin 28.1 pg (27.0-31.0); Mean Platelet Volume 9.3 fL (7.4-10.4); Platelet Count 220 10x3/uL (130-400); RBC Distribution Width 14.7 % (11.5-14.5); Red Blood Cell (RBC) Count 4.16 mill/uL (4.70-6.10)
[2024-01-16 05:10] LABS: Anion Gap 9 mmol/L (10-20); BUN (Urea Nitrogen) 10 mg/dL (8.9-20.6); Calc. Creatinine Clearance 299 mL/min (70-130); Calcium 8.3 mg/dL (7.8-10.44); Carbon Dioxide 25 mmol/L (22-29); Chloride 107 mmol/L (98-107); Estimated GFR 140; Glucose 141 mg/dL (70-105); Potassium 2.9 mmol/L (3.5-5.1); Sodium 138 mmol/L (136-145)
[2024-01-16 05:57] VITALS: BMI 32.1
[2024-01-16] MEDS: Potassium Chloride 40 MEQ in Premix 1 BAG IVPB SCH ×2 (06:28→10:58)
[2024-01-16] MEDS: Hydrocortisone Sod Succ/PF 100 mg/2 ml Vial IVP SCH (08:06)
[2024-01-16] MEDS: Pantoprazole 40 MG VIAL IVP SCH (08:06)
[2024-01-16] MEDS: Enoxaparin 40 MG (0.4 mL) SYRINGE SC SCH (08:06)
[2024-01-16] MEDS ORDERED: Electrolyte Replacement Protocol FS PRN (10:45)
[2024-01-16] MEDS: Magnesium 2 GM/50 ML(in water) 2 GM in Premix 1 BAG IVPB SCH (10:58)
[2024-01-16] MEDS: Electrolyte Replacement Protocol 1 EACH FS ONE (11:35)
[2024-01-16] MEDS: traMADol HCl 50 MG TAB PO PRN (11:44)
[2024-01-16 14:10] VITALS: BMI 32.1
[2024-01-16 15:54] LABS: Potassium 4.5 mmol/L (3.5-5.1)
[2024-01-17 04:16] LABS: #Basophils Less than 0.03 10x3/uL (0.0-0.2); %Basophils 0.1 % (0.0-1.0); %Eosinophils 0.9 % (0.0-10.0); %Lymphocytes 15.2 % (21.0-51.0); %Monocytes 8.2 % (0.0-10.0); %Neutrophils 75.4 % (42.0-75.0); Hematocrit 32.8 % (42.0-52.0); Hemoglobin 10.6 g/dL (14.0-18.0); Mean Corpuscular HGB CONC 32.3 g/dL (32.0-36.0); Mean Corpuscular Hemoglobin 27.7 pg (27.0-31.0); Mean Corpuscular Volume 85.9 fL (78.0-98.0); Mean Platelet Volume 9.6 fL (7.4-10.4); Platelet Count 175 10x3/uL (130-400); RBC Distribution Width 14.3 % (11.5-14.5); Red Blood Cell (RBC) Count 3.82 mill/uL (4.70-6.10)
[2024-01-17 04:33] LABS: Anion Gap 7 mmol/L (10-20); BUN (Urea Nitrogen) 10 mg/dL (8.9-20.6); Calc. Creatinine Clearance 312 mL/min (70-130); Calcium 8.4 mg/dL (7.8-10.44); Carbon Dioxide 28 mmol/L (22-29); Chloride 105 mmol/L (98-107); Estimated GFR 142; Glucose 122 mg/dL (70-105); Magnesium 2.2 mg/dL (1.6-2.6); Potassium 3.9 mmol/L (3.5-5.1); Sodium 136 mmol/L (136-145)
[2024-01-17] MEDS: Midodrine HCl 5 MG TAB PO SCH (09:02)
[2024-01-17] MEDS: Sodium Chloride 0.9% 1,000 ML IV SCH (09:03)
[2024-01-18 04:59] LABS: #Basophils Less than 0.03 10x3/uL (0.0-0.2); %Basophils 0.4 % (0.0-1.0); %Eosinophils 0.6 % (0.0-10.0); %Lymphocytes 32.5 % (21.0-51.0); %Monocytes 11.7 % (0.0-10.0); %Neutrophils 54.4 % (42.0-75.0); Hematocrit 32.1 % (42.0-52.0); Hemoglobin 10.3 g/dL (14.0-18.0); Mean Corpuscular HGB CONC 32.1 g/dL (32.0-36.0); Mean Corpuscular Hemoglobin 27.8 pg (27.0-31.0); Mean Corpuscular Volume 86.8 fL (78.0-98.0); Platelet Count 158 10x3/uL (130-400); RBC Distribution Width 14.7 % (11.5-14.5)
[2024-01-18 05:20] LABS: BUN (Urea Nitrogen) 12 mg/dL (8.9-20.6); Calc. Creatinine Clearance 317 mL/min (70-130); Calcium 8.5 mg/dL (7.8-10.44); Carbon Dioxide 27 mmol/L (22-29); Estimated GFR 142; Glucose 100 mg/dL (70-105)
[2024-01-18 05:44] LABS: Anion Gap 10 mmol/L (10-20); Chloride 107 mmol/L (98-107); Potassium 3.6 mmol/L (3.5-5.1); Sodium 139 mmol/L (136-145)
[2024-01-19 04:59] LABS: #Basophils Less than 0.03 10x3/uL (0.0-0.2); #Eosinphils Less than 0.03 10x3/uL (0.0-0.7); %Basophils 0.4 % (0.0-1.0); %Eosinophils 0.4 % (0.0-10.0); %Monocytes 10.7 % (0.0-10.0); %Neutrophils 57.7 % (42.0-75.0); Hematocrit 32.6 % (42.0-52.0); Hemoglobin 10.4 g/dL (14.0-18.0); Mean Corpuscular HGB CONC 31.9 g/dL (32.0-36.0); Mean Corpuscular Volume 87.9 fL (78.0-98.0); Mean Platelet Volume 9.6 fL (7.4-10.4); Platelet Count 185 10x3/uL (130-400); RBC Distribution Width 14.9 % (11.5-14.5); Red Blood Cell (RBC) Count 3.71 mill/uL (4.70-6.10)
[2024-01-19 05:40] LABS: Anion Gap 10 mmol/L (10-20); BUN (Urea Nitrogen) 15 mg/dL (8.9-20.6); Calc. Creatinine Clearance 325 mL/min (70-130); Calcium 8.1 mg/dL (7.8-10.44); Carbon Dioxide 25 mmol/L (22-29); Chloride 106 mmol/L (98-107); Estimated GFR 143; Glucose 126 mg/dL (70-105); Potassium 3.6 mmol/L (3.5-5.1); Sodium 137 mmol/L (136-145)
[2024-01-19 08:54] VITALS: BP 134/87; TEMP 97.5
[2024-01-19] MEDS: Pantoprazole DR 40 MG TAB PO SCH (09:04)
== END 2024-01-19 17:52 | DRG 871 ==
LOC: ERS 15:31 → CCU 19:43 → MSONC 01-17 14:30
PROVIDERS: ADMIT Student in an Organized Health Care Education/Training Program; ATTEND Internal Medicine
DX: A41.9 Sepsis, unspecified organism (principal); G82.50 Quadriplegia, unspecified; L89.154 Pressure ulcer of sacral region, stage 4; R65.21 Severe sepsis with septic shock; G89.29 Other chronic pain; K62.89 Other specified diseases of anus and rectum; J45.909 Unspecified asthma, uncomplicated; Z79.899 Other long term (current) drug therapy
CPT/HCPCS: 36415; 36416; 36556; 51702; 71045; 74177; 80048; 80053; 81001; 83605; 83690; 83735; 84145; 85025; 86141; 87040; 87077; 87086; 93005; 94640; 96365; 96367; 96374; 96375; 97139; 97602; J1650; J1720; J2272; J2470; J2543; J3370; J3475; J3480; J7030; J7620; Q9967

== ENCOUNTER 2024-07-18 14:26 | Inpatient (IN) | payer OTHER ==
[2024-07-18] MEDS ORDERED: Cefepime 2 GM VIAL ONE (16:45)
[2024-07-18] MEDS ORDERED: Morphine 4 MG/ML VIAL ONE (16:45)
[2024-07-18 16:52] LABS: Analyzer IN Cardio ER; Base Excess 0.7 mEq/L (-2.0 to +3.0); Chloride (VBG) 99 mmol/L (98-106); Hematocrit-VBG 32 % (42.0-52.0); Hemoglobin (Hb) 10.9 g/dL (13.2-17.3); Potassium (VBG) 3.43 mmol/L (3.70-5.30); Sodium 137 mmol/L (133-146); pH (venous) 7.425 (7.32-7.43)
[2024-07-18 16:57] LABS: #Basophils 0.03 10x3/uL (0.0-0.2); %Basophils 0.3 % (0.0-1.0); %Eosinophils 1.2 % (0.0-10.0); %Lymphocytes 16.3 % (21.0-51.0); %Monocytes 12.3 % (0.0-10.0); %Neutrophils 69.4 % (42.0-75.0); Hematocrit 30.5 % (42.0-52.0); Hemoglobin 9.5 g/dL (14.0-18.0); Mean Corpuscular HGB CONC 31.1 g/dL (32.0-36.0); Mean Corpuscular Hemoglobin 25.3 pg (27.0-31.0); Mean Corpuscular Volume 81.3 fL (78.0-98.0); Mean Platelet Volume 8.8 fL (7.4-10.4); Platelet Count 300 10x3/uL (130-400); RBC Distribution Width 15.2 % (11.5-14.5); Red Blood Cell (RBC) Count 3.75 mill/uL (4.70-6.10)
[2024-07-18 17:13] LABS: ALT (SGPT) 45 U/L (Less than 45); AST (SGOT) 29 U/L (11-34); Albumin 2.8 g/dL (3.1-4.5); Alkaline Phosphatase 95 U/L (40-110); Anion Gap 15 mmol/L (10-20); BUN (Urea Nitrogen) 14 mg/dL (8.9-20.6); Bilirubin, Total 0.3 mg/dL (0.3-1.2); Calc. Creatinine Clearance 0 mL/min (70-130); Calcium 8.8 mg/dL (7.8-10.44); Carbon Dioxide 24 mmol/L (22-29); Chloride 102 mmol/L (98-107); Estimated GFR 141; Glucose 135 mg/dL (70-105); Potassium 3.6 mmol/L (3.5-5.1); Protein, Total 7.3 g/dL (6.0-8.3); Sodium 137 mmol/L (136-145)
[2024-07-18 17:26] LABS: Globulin 4.5 g/dL (2.4-3.5)
[2024-07-18 18:09] LABS: Bacteria/HPF 2+ HPF (None Seen); Bilirubin Negative (Negative); Blood, Urine Negative (Negative); CAUTI Indications for Culture Dysuria,urgency,freq; Clarity Turbid (Clear); Glucose, Urine (Dipstick) Normal (Negative); Ketone, Urine Negative (Negative); Leukocyte 500 Leu/uL (Negative); Nitrite 2+ (Negative); Protein, Urine (Dipstick) 50 mg/dL (Neg-Trace); Specific Gravity, Urine 1.022 (1.002-1.036); Squamous Epithelial 0-3 HPF (0-3); Urobilinogen 3 mg/dL (Less than 2)
[2024-07-18 18:13] LABS: Urine Culture Reflex Yes Yes; WBC/HPF 21-50 HPF (0-3)
[2024-07-18] MEDS ORDERED: Ipratropium/Albuterol 3 ML NEB NEB PRN (18:25)
[2024-07-18] MEDS ORDERED: Bisacodyl 10 MG SUPP PR PRN (18:25)
[2024-07-18] MEDS ORDERED: Ondansetron PF 4 MG/2 ML Vial IVP PRN (18:26)
[2024-07-18] MEDS ORDERED: Acetaminophen 325 MG TAB PO PRN (18:26)
[2024-07-18 20:31] VITALS: BMI 30.9
[2024-07-18] MEDS: Vancomycin (BATCH) 2 GM in Premix 1 BAG IVPB SCH (20:31)
[2024-07-18] MEDS: Montelukast Sodium 10 mg Tablet PO SCH (21:15)
[2024-07-18] MEDS: Midodrine HCl 5 MG TAB PO SCH (21:15)
[2024-07-18] MEDS: Enoxaparin 40 MG (0.4 mL) SYRINGE SC SCH (21:16)
[2024-07-18] MEDS: Mometasone 200 MCG/Formoterol 5 MCG 120 PUFF INHALER INH SCH (23:30)
[2024-07-18] MEDS: Vancomycin 1 GM in Premix 1 BAG IVPB SCH (23:31)
[2024-07-18] MEDS: Vancomycin 1.5 GRAM/300 ML BAG 1.5 GM in Premix 1 BAG IVPB SCH (23:54)
[2024-07-19] MEDS: Morphine 2 MG/ML VIAL SLOW IVP PRN (02:09)
[2024-07-19] MEDS: Cefepime 1 GM in Sodium Chloride 0.9% 100 ML IVPB SCH (05:52)
[2024-07-19 06:15] LABS: #Basophils Less than 0.03 10x3/uL (0.0-0.2); %Basophils 0.3 % (0.0-1.0); %Eosinophils 1.7 % (0.0-10.0); %Lymphocytes 25.7 % (21.0-51.0); %Monocytes 11.5 % (0.0-10.0); %Neutrophils 60.3 % (42.0-75.0); Hemoglobin 9.6 g/dL (14.0-18.0); Mean Corpuscular Hemoglobin 25.5 pg (27.0-31.0); Mean Corpuscular Volume 82.2 fL (78.0-98.0); Mean Platelet Volume 8.5 fL (7.4-10.4); Platelet Count 245 10x3/uL (130-400); RBC Distribution Width 15.3 % (11.5-14.5); Red Blood Cell (RBC) Count 3.77 mill/uL (4.70-6.10)
[2024-07-19 06:28] LABS: Vancomycin, Random 29.2 ug/mL (See Comment)
[2024-07-19 06:30] LABS: Anion Gap 10 mmol/L (10-20); BUN (Urea Nitrogen) 7 mg/dL (8.9-20.6); Calc. Creatinine Clearance 422 mL/min (70-130); Calcium 8.3 mg/dL (7.8-10.44); Carbon Dioxide 24 mmol/L (22-29); Chloride 108 mmol/L (98-107); Estimated GFR 150; Glucose 96 mg/dL (70-105); Potassium 3.4 mmol/L (3.5-5.1); Sodium 139 mmol/L (136-145)
[2024-07-19] MEDS: Citalopram 20 MG TAB PO SCH (08:31)
[2024-07-19] MEDS: Enoxaparin 40 MG (0.4 mL) SYRINGE SC SCH (08:31)
[2024-07-19] MEDS: Pantoprazole 40 MG DR.TAB PO SCH (08:31)
[2024-07-19] MEDS: FLU (Fluarix Triv) TS24-25(6MOS UP)/PF 45 MCG/0.5 ML Syringe IM ONE (08:32)
[2024-07-19] MEDS: Polyethylene Glycol 3350 17 GM Packet PO SCH (08:32)
[2024-07-19] MEDS: Mometasone 200 MCG/Formoterol 5 MCG 120 PUFF INHALER INH SCH (08:38)
[2024-07-19] MEDS: Potassium Chloride 20 MEQ TAB PO SCH (09:14)
[2024-07-19] MEDS ORDERED: Promethazine HCl 25 MG/ML VIAL IM PRN (10:55)
[2024-07-19] MEDS ORDERED: Ondansetron HCl/PF 4 MG/2 ML Vial IVP PRN (10:55)
[2024-07-19] MEDS ORDERED: fentaNYL PF 100 MCG/2 ML SYRINGE ONE (11:01)
[2024-07-19] MEDS ORDERED: PROPOFOL 20 ML ONE (11:01)
[2024-07-19] MEDS ORDERED: Famotidine/PF 20 mg/2ml Vial ONE (11:02)
[2024-07-19] MEDS ORDERED: Lidocaine 2% PF 5 ML VIAL ONE (11:03)
[2024-07-19] MEDS ORDERED: Rocuronium Bromide 10 MG/ML (10ML VIAL) ONE (11:04)
[2024-07-19] MEDS ORDERED: PHENYLEPHRINE-NS 100 MCG/ML 10 ML SYRINGE ONE (11:21)
[2024-07-19] MEDS ORDERED: SUGAMMADEX SODIUM 200 MG/2 ML VIAL ONE (11:47)
[2024-07-19] MEDS ORDERED: Ondansetron PF 4 MG/2 ML Vial ONE (11:47)
[2024-07-19] MEDS ORDERED: Dexamethasone 4 mg/ml Vial ONE (11:47)
[2024-07-19] MEDS: Cefepime 2 GM in Sodium Chloride 0.9% 100 ML IVPB SCH (14:06)
[2024-07-19] MEDS: VANCOMYCIN 1.25 GM/250 ML BAG 1.25 GM in Premix 1 BAG IVPB SCH (20:18)
[2024-07-19] MEDS: Acetaminophen/Codeine 30-300mg Tablet PO PRN (20:19)
[2024-07-20 06:11] LABS: #Basophils Less than 0.03 10x3/uL (0.0-0.2); %Basophils 0.2 % (0.0-1.0); %Eosinophils 0.5 % (0.0-10.0); %Lymphocytes 22.1 % (21.0-51.0); %Monocytes 10.2 % (0.0-10.0); %Neutrophils 66.4 % (42.0-75.0); Hematocrit 27.6 % (42.0-52.0); Hemoglobin 8.5 g/dL (14.0-18.0); Mean Corpuscular HGB CONC 30.8 g/dL (32.0-36.0); Mean Corpuscular Hemoglobin 25.1 pg (27.0-31.0); Mean Corpuscular Volume 81.4 fL (78.0-98.0); Mean Platelet Volume 9.4 fL (7.4-10.4); Platelet Count 247 10x3/uL (130-400); RBC Distribution Width 15.2 % (11.5-14.5); Red Blood Cell (RBC) Count 3.39 mill/uL (4.70-6.10)
[2024-07-20 07:16] LABS: Anion Gap 11 mmol/L (10-20); BUN (Urea Nitrogen) 10 mg/dL (8.9-20.6); Calc. Creatinine Clearance 379 mL/min (70-130); Calcium 8.2 mg/dL (7.8-10.44); Carbon Dioxide 25 mmol/L (22-29); Chloride 107 mmol/L (98-107); Estimated GFR 145; Glucose 157 mg/dL (70-105); Potassium 3.8 mmol/L (3.5-5.1); Sodium 139 mmol/L (136-145)
[2024-07-20 21:45] VITALS: BMI 30.9
[2024-07-21] MEDS: Cefepime 2 GM in Sodium Chloride 0.9% 100 ML IVPB SCH (03:06)
[2024-07-21 10:45] LABS: #Basophils 0.03 10x3/uL (0.0-0.2); %Basophils 0.4 % (0.0-1.0); %Eosinophils 2.2 % (0.0-10.0); %Monocytes 10.2 % (0.0-10.0); %Neutrophils 62.6 % (42.0-75.0); Hematocrit 30.6 % (42.0-52.0); Hemoglobin 9.2 g/dL (14.0-18.0); Mean Corpuscular HGB CONC 30.1 g/dL (32.0-36.0); Mean Corpuscular Hemoglobin 25.3 pg (27.0-31.0); Mean Corpuscular Volume 84.3 fL (78.0-98.0); Mean Platelet Volume 9.3 fL (7.4-10.4); Platelet Count 250 10x3/uL (130-400); RBC Distribution Width 15.4 % (11.5-14.5); Red Blood Cell (RBC) Count 3.63 mill/uL (4.70-6.10)
[2024-07-21 11:09] LABS: Anion Gap 10 mmol/L (10-20); BUN (Urea Nitrogen) 11 mg/dL (8.9-20.6); Calc. Creatinine Clearance 462 mL/min (70-130); Calcium 8.4 mg/dL (7.8-10.44); Carbon Dioxide 29 mmol/L (22-29); Chloride 104 mmol/L (98-107); Estimated GFR 154; Glucose 127 mg/dL (70-105); Potassium 3.6 mmol/L (3.5-5.1); Sodium 139 mmol/L (136-145)
[2024-07-21 11:12] LABS: Vancomycin, Random 2.3 ug/mL (See Comment)
[2024-07-21] MEDS: Vancomycin (BATCH) 2 GM in Premix 1 BAG IVPB SCH (13:44)
[2024-07-21] MEDS: VANCOMYCIN 1.25 GM/250 ML BAG 1.25 GM in Premix 1 BAG IVPB SCH (14:05)
[2024-07-22] MEDS: VANCOMYCIN 1.25 GM/250 ML BAG 1.25 GM in Premix 1 BAG IVPB SCH (00:15)
[2024-07-22] MEDS: Sodium Chloride 0.9% 100 ML ONE (03:30)
[2024-07-22 06:07] LABS: Anion Gap 12 mmol/L (10-20); BUN (Urea Nitrogen) 8 mg/dL (8.9-20.6); Calc. Creatinine Clearance 411 mL/min (70-130); Calcium 8.7 mg/dL (7.8-10.44); Carbon Dioxide 29 mmol/L (22-29); Chloride 105 mmol/L (98-107); Estimated GFR 149; Glucose 130 mg/dL (70-105); Potassium 4.1 mmol/L (3.5-5.1); Sodium 142 mmol/L (136-145); Vancomycin, Random 23.6 ug/mL (See Comment)
[2024-07-23] MEDS: metroNIDAZOLE 500 MG TAB PO SCH (14:42)
[2024-07-24] MEDS: Sulfameth/Trimethoprim DS 800-160mg TAB PO SCH ×2 (00:52→09:10)
[2024-07-24] MEDS: AMOXicillin 250 MG CAP PO SCH (00:52)
[2024-07-24] MEDS: Amoxicillin/Potassium Clav 875 MG TAB PO SCH (09:10)
[2024-07-24 17:37] VITALS: BP 101/68; TEMP 98.4
== END 2024-07-24 15:12 | DRG 570 ==
LOC: ERS 14:26 → T4-B 18:19
PROVIDERS: ADMIT Student in an Organized Health Care Education/Training Program; ATTEND Hospitalist
PROC: 0JB70ZZ Excision of Back Subcutaneous Tissue and Fascia, Open Approach (ICD-10-PCS; principal; 2024-07-19)
DX: L89.154 Pressure ulcer of sacral region, stage 4 (principal); G82.50 Quadriplegia, unspecified; J45.909 Unspecified asthma, uncomplicated; F41.9 Anxiety disorder, unspecified; F32.A Depression, unspecified; Z98.890 Other specified postprocedural states; Z79.899 Other long term (current) drug therapy
CPT/HCPCS: 36415; 74177; 80048; 80053; 80202; 81001; 82805; 83605; 83735; 85025; 86141; 87040; 87070; 87077; 87086; 87186; 87205; 96372; 96374; 96375; 97139; J0692; J1100; J1650; J2270; J2272; J2405; J2704; J3370; J3490; Q9967

== ENCOUNTER 2024-08-02 21:27 | Inpatient (IN) | payer MEDICAID, OTHER, SELFPAY ==
[2024-08-02] MEDS ORDERED: Sodium Chloride 0.9% 100 ML ONE (22:17)
[2024-08-02] MEDS ORDERED: Piperacillin/Tazobactam 4.5 GM VIAL ONE (22:17)
[2024-08-02] MEDS ORDERED: Ketorolac Tromethamine 30 MG (1 mL) VIAL ONE (22:17)
[2024-08-02 22:30] LABS: #Basophils Less than 0.03 10x3/uL (0.0-0.2); %Basophils 0.3 % (0.0-1.0); %Lymphocytes 19.7 % (21.0-51.0); %Monocytes 15.7 % (0.0-10.0); %Neutrophils 62.8 % (42.0-75.0); Hemoglobin 8.9 g/dL (14.0-18.0); Mean Corpuscular HGB CONC 30.7 g/dL (32.0-36.0); Mean Corpuscular Hemoglobin 24.5 pg (27.0-31.0); Mean Corpuscular Volume 79.7 fL (78.0-98.0); Mean Platelet Volume 8.5 fL (7.4-10.4); Platelet Count 237 10x3/uL (130-400); RBC Distribution Width 15.4 % (11.5-14.5); Red Blood Cell (RBC) Count 3.64 mill/uL (4.70-6.10)
[2024-08-02 22:33] LABS: Actual Bicarbonate (HCO3v) 23.5 mEq/L (22-28); Base Excess -1.8 mEq/L (-2.0 to +3.0); Calcium, Ionized (venous) 1.12 mmol/L (1.16-1.32); Chloride (VBG) 96 mmol/L (98-106); Hematocrit-VBG 30 % (42.0-52.0); Hemoglobin (Hb) 10.3 g/dL (13.2-17.3); Potassium (VBG) 3.38 mmol/L (3.70-5.30); Sodium 136 mmol/L (133-146); pH (venous) 7.364 (7.32-7.43)
[2024-08-02 22:45] LABS: INR-International Normal Ratio 1.2; PTT 29.7 sec (22.9-36.1); Prothrombin Time 14.7 sec (12.0-14.7)
[2024-08-02 22:51] LABS: Bilirubin Negative (Negative); Blood, Urine Negative (Negative); Clarity Clear (Clear); Glucose, Urine (Dipstick) Negative (Negative); Ketone, Urine Negative (Negative); Leukocyte Negative (Negative); Nitrite Negative (Negative); Protein, Urine (Dipstick) Trace mg/dL (Neg-Trace)
[2024-08-02 22:52] LABS: Specific Gravity, Urine 1.027 (1.002-1.036)
[2024-08-02 22:53] LABS: CAUTI Indications for Culture Fever or rigors; RBC/HPF None Seen HPF (0-3); Squamous Epithelial None Seen HPF (0-3); WBC/HPF 0-3 HPF (0-3)
[2024-08-02 22:54] LABS: ALT (SGPT) 36 U/L (Less than 45); AST (SGOT) 49 U/L (11-34); Albumin 3.1 g/dL (3.1-4.5); Alkaline Phosphatase 99 U/L (40-110); Anion Gap 17 mmol/L (10-20); BUN (Urea Nitrogen) 12 mg/dL (8.9-20.6); Bilirubin, Total 0.1 mg/dL (0.3-1.2); CK (CPK) 76 U/L (30-200); Calc. Creatinine Clearance 0 mL/min (70-130); Calcium 8.7 mg/dL (7.8-10.44); Carbon Dioxide 22 mmol/L (22-29); Chloride 100 mmol/L (98-107); Estimated GFR 138; Globulin 4.2 g/dL (2.4-3.5); Glucose 160 mg/dL (70-105); Potassium 4.4 mmol/L (3.5-5.1); Protein, Total 7.3 g/dL (6.0-8.3); Sodium 135 mmol/L (136-145)
[2024-08-02 22:54] LABS: Bacteria/HPF Rare-Few HPF (None Seen)
[2024-08-02 22:55] LABS: Urine Culture Reflex No No
[2024-08-03] MEDS ORDERED: Ondansetron ODT 4 MG TAB PO PRN (01:53)
[2024-08-03] MEDS ORDERED: Ondansetron PF 4 MG/2 ML Vial IVP PRN (01:53)
[2024-08-03] MEDS ORDERED: Calcium Carbonate 500 MG ChewTAB PO PRN (01:53)
[2024-08-03] MEDS ORDERED: Acetaminophen 650 MG Suppository PR PRN (01:53)
[2024-08-03 02:26] VITALS: BMI 30.4
[2024-08-03] MEDS: Midodrine HCl 5 MG TAB PO SCH ×2 (02:39→08:28)
[2024-08-03] MEDS: Vancomycin (BATCH) 2.5 GM in Premix 1 BAG IVPB SCH (02:39)
[2024-08-03 03:04] LABS: #Basophils Less than 0.03 10x3/uL (0.0-0.2); %Eosinophils 1.5 % (0.0-10.0); %Lymphocytes 19.4 % (21.0-51.0); %Monocytes 17.6 % (0.0-10.0); %Neutrophils 60.9 % (42.0-75.0); Hematocrit 27.4 % (42.0-52.0); Hemoglobin 8.1 g/dL (14.0-18.0); Mean Corpuscular HGB CONC 29.6 g/dL (32.0-36.0); Mean Corpuscular Hemoglobin 24.5 pg (27.0-31.0); Mean Platelet Volume 8.9 fL (7.4-10.4); Platelet Count 209 10x3/uL (130-400); RBC Distribution Width 15.7 % (11.5-14.5)
[2024-08-03] MEDS: Ipratropium/Albuterol 3 ML NEB NEB PRN (03:10)
[2024-08-03 03:17] LABS: Anion Gap 14 mmol/L (10-20); BUN (Urea Nitrogen) 10 mg/dL (8.9-20.6); Calc. Creatinine Clearance 364 mL/min (70-130); Calcium 7.9 mg/dL (7.8-10.44); Carbon Dioxide 20 mmol/L (22-29); Chloride 106 mmol/L (98-107); Estimated GFR 144; Glucose 124 mg/dL (70-105); Potassium 3.4 mmol/L (3.5-5.1); Sodium 137 mmol/L (136-145)
[2024-08-03 03:18] LABS: Lactic Acid 1.32 mmol/L (0.50-2.20)
[2024-08-03] MEDS: Acetaminophen 325 MG TAB PO PRN (08:27)
[2024-08-03] MEDS: Sulfameth/Trimethoprim DS 800-160mg TAB PO SCH (08:27)
[2024-08-03] MEDS: Amoxicillin/Potassium Clav 875 MG TAB PO SCH (08:27)
[2024-08-03] MEDS: Citalopram 20 MG TAB PO SCH (08:28)
[2024-08-03] MEDS: Pantoprazole 40 MG DR.TAB PO SCH (08:28)
[2024-08-03] MEDS: Polyethylene Glycol 3350 17 GM Packet PO SCH (08:28)
[2024-08-03] MEDS: traMADol HCl 50 MG TAB PO PRN (10:38)
[2024-08-03] MEDS: Benzonatate 100 MG CAP PO SCH ×2 (10:40→14:47)
[2024-08-03] MEDS: Mometasone 200 MCG/Formoterol 5 MCG 120 PUFF INHALER INH SCH (10:58)
[2024-08-03] MEDS: Montelukast Sodium 10 mg Tablet PO SCH (20:12)
[2024-08-04 06:17] LABS: #Basophils Less than 0.03 10x3/uL (0.0-0.2); #Eosinophils Less than 0.03 10x3/uL (0.0-0.7); %Eosinophils 0.6 % (0.0-10.0); %Lymphocytes 26.6 % (21.0-51.0); %Monocytes 18.2 % (0.0-10.0); Hematocrit 28.1 % (42.0-52.0); Hemoglobin 8.6 g/dL (14.0-18.0); Mean Corpuscular HGB CONC 30.6 g/dL (32.0-36.0); Mean Corpuscular Hemoglobin 24.4 pg (27.0-31.0); Mean Corpuscular Volume 79.8 fL (78.0-98.0); Mean Platelet Volume 9.2 fL (7.4-10.4); Platelet Count 217 10x3/uL (130-400); RBC Distribution Width 15.6 % (11.5-14.5); Red Blood Cell (RBC) Count 3.52 mill/uL (4.70-6.10)
[2024-08-04 06:54] LABS: Anion Gap 13 mmol/L (10-20); BUN (Urea Nitrogen) 7 mg/dL (8.9-20.6); Calc. Creatinine Clearance 428 mL/min (70-130); Calcium 8.2 mg/dL (7.8-10.44); Carbon Dioxide 24 mmol/L (22-29); Chloride 102 mmol/L (98-107); Estimated GFR 151; Glucose 101 mg/dL (70-105); Potassium 4.2 mmol/L (3.5-5.1); Sodium 135 mmol/L (136-145)
[2024-08-04 20:15] VITALS: BMI 30.4
[2024-08-04 22:42] LABS: Actual Bicarbonate (HCO3a) 29.1 mEq/L (22-28); CO2 Tension 52.9 mmHg (35.0-45.0); Calcium, Ionized (arterial) 1.18 mmol/L (1.12-1.30); Carboxyhemoglobin (COHb) 0.7 gm% (0.0-3.0); Hematocrit-ABG 28 % (42.0-52.0); Hemoglobin (Hb) 9.5 g/dL (14.0-18.0); O2 Tension (PaO2), arterial 89.1 mmHg (80.0-100.0); Potassium - ABG Lab 3.82 mmol/L (3.70-5.30); pH, Arterial 7.359 (7.35-7.45)
[2024-08-04 22:43] LABS: ALV-art Gradient 72.935 mmHg (0-20)
[2024-08-04 22:55] LABS: #Basophils Less than 0.03 10x3/uL (0.0-0.2); %Eosinophils 0.9 % (0.0-10.0); %Lymphocytes 32.8 % (21.0-51.0); %Monocytes 15.1 % (0.0-10.0); %Neutrophils 50.9 % (42.0-75.0); Hematocrit 29.7 % (42.0-52.0); Hemoglobin 9.1 g/dL (14.0-18.0); Mean Corpuscular HGB CONC 30.6 g/dL (32.0-36.0); Mean Corpuscular Hemoglobin 24.5 pg (27.0-31.0); Mean Corpuscular Volume 79.8 fL (78.0-98.0); Mean Platelet Volume 8.9 fL (7.4-10.4); Platelet Count 209 10x3/uL (130-400); RBC Distribution Width 15.4 % (11.5-14.5); Red Blood Cell (RBC) Count 3.72 mill/uL (4.70-6.10)
[2024-08-04 23:13] LABS: ALT (SGPT) 36 U/L (Less than 45); AST (SGOT) 33 U/L (11-34); Albumin 2.8 g/dL (3.1-4.5); Alkaline Phosphatase 84 U/L (40-110); Anion Gap 12 mmol/L (10-20); BUN (Urea Nitrogen) 7 mg/dL (8.9-20.6); Bilirubin, Total 0.1 mg/dL (0.3-1.2); Calc. Creatinine Clearance 404 mL/min (70-130); Calcium 8.2 mg/dL (7.8-10.44); Carbon Dioxide 27 mmol/L (22-29); Chloride 103 mmol/L (98-107); Estimated GFR 149; Globulin 3.8 g/dL (2.4-3.5); Glucose 138 mg/dL (70-105); Potassium 3.8 mmol/L (3.5-5.1); Protein, Total 6.6 g/dL (6.0-8.3); Sodium 138 mmol/L (136-145)
[2024-08-04 23:15] LABS: Lactic Acid 0.92 mmol/L (0.50-2.20)
[2024-08-05 04:56] LABS: #Basophils Less than 0.03 10x3/uL (0.0-0.2); %Basophils 0.3 % (0.0-1.0); %Eosinophils 0.8 % (0.0-10.0); %Monocytes 16.3 % (0.0-10.0); %Neutrophils 55.3 % (42.0-75.0); Hematocrit 27.9 % (42.0-52.0); Hemoglobin 8.3 g/dL (14.0-18.0); Mean Corpuscular HGB CONC 29.7 g/dL (32.0-36.0); Mean Corpuscular Hemoglobin 24.4 pg (27.0-31.0); Mean Corpuscular Volume 82.1 fL (78.0-98.0); Mean Platelet Volume 8.8 fL (7.4-10.4); Platelet Count 195 10x3/uL (130-400); RBC Distribution Width 15.3 % (11.5-14.5)
[2024-08-05 05:23] LABS: Anion Gap 11 mmol/L (10-20); BUN (Urea Nitrogen) 8 mg/dL (8.9-20.6); Calc. Creatinine Clearance 441 mL/min (70-130); Calcium 8.3 mg/dL (7.8-10.44); Carbon Dioxide 28 mmol/L (22-29); Chloride 103 mmol/L (98-107); Estimated GFR 153; Glucose 124 mg/dL (70-105); Potassium 3.9 mmol/L (3.5-5.1); Sodium 138 mmol/L (136-145)
[2024-08-05] MEDS: Oseltamivir 75 MG CAP PO SCH (09:44)
[2024-08-05 11:35] VITALS: BP 161/65; TEMP 98.7
== END 2024-08-05 15:29 | DRG 853 ==
LOC: ERS 21:27 → 2NO 08-03 00:46 → INTOOBSV 08-03 00:46 → OBSVTOIN 08-04 01:00 → INTOOBSV 08-04 01:00 → OBSVTOIN 08-04 15:30
PROVIDERS: ADMIT Student in an Organized Health Care Education/Training Program; ATTEND Internal Medicine
PROC: 0JB70ZZ Excision of Back Subcutaneous Tissue and Fascia, Open Approach (ICD-10-PCS; principal; 2024-08-03)
PROC: 3E03329 Introduction of Other Anti-infective into Peripheral Vein, Percutaneous Approach (ICD-10-PCS; 2024-08-03)
DX: A41.89 Other specified sepsis (principal); G82.50 Quadriplegia, unspecified; M86.60 Other chronic osteomyelitis, unspecified site; J11.1 Influenza due to unidentified influenza virus with other respiratory manifestations; J44.89 Other specified chronic obstructive pulmonary disease; Z79.899 Other long term (current) drug therapy
CPT/HCPCS: 36415; 71045; 74177; 80048; 80053; 81001; 82550; 82805; 83605; 83880; 85025; 85610; 85730; 87040; 87086; 87149; 87428; 93005; 94640; 94660; 97139; G0378; J1885; J2543; J3370; J7620; Q9967

== ENCOUNTER 2025-03-16 12:08 | Inpatient (IN) | payer MEDICAID ==
[2025-03-16 17:18] LABS: #Basophils Less than 0.03 10x3/uL (0.0-0.2); #Eosinophils 0.28 10x3/uL (0.0-0.7); #Monocytes 0.68 10x3/uL (0.11-0.59); #Neutrophils 5.26 10x3/uL (1.40-6.50); %Basophils 0.2 % (0.0-1.0); %Eosinophils 3.3 % (0.0-10.0); %Lymphocytes 25.8 % (21.0-51.0); %Monocytes 8.0 % (0.0-10.0); %Neutrophils 62.3 % (42.0-75.0); Hematocrit 32.4 % (42.0-52.0); Hemoglobin 9.6 g/dL (14.0-18.0); Mean Corpuscular Hemoglobin 22.0 pg (27.0-31.0); Mean Corpuscular Volume 74.3 fL (78.0-98.0); Platelet Count 277 10x3/uL (130-400); Red Blood Cell (RBC) Count 4.36 mill/uL (4.70-6.10); White Blood Cell (WBC) Count 8.45 10x3/uL (4.8-10.8)
[2025-03-16 17:33] LABS: ALT (SGPT) 22 U/L (Less than 45); AST (SGOT) 29 U/L (11-34); Albumin 3.3 g/dL (3.1-4.5); Alkaline Phosphatase 115 U/L (40-110); Anion Gap 13 mmol/L (10-20); BUN (Urea Nitrogen) 13 mg/dL (8.9-20.6); Bilirubin, Total 0.3 mg/dL (0.3-1.2); Calc. Creatinine Clearance 0 mL/min (70-130); Calcium 9.4 mg/dL (7.8-10.44); Carbon Dioxide 28 mmol/L (22-29); Chloride 100 mmol/L (98-107); Globulin 4.4 g/dL (2.4-3.5); Glucose 106 mg/dL (70-105); Potassium 3.7 mmol/L (3.5-5.1); Sodium 137 mmol/L (136-145)
[2025-03-16 17:39] LABS: Anisocytosis SLIGHT = 6-15 cells HPF (0-5); Microcytosis SLIGHT = 6-15 cells HPF (0-5); Platelet Adequacy Comment Platelets Normal; Polychromasia SLIGHT = 2-3 cells HPF (0-2)
[2025-03-16 17:51] LABS: CAUTI Indications for Culture Pelvic or flank pain; Glucose, Urine (Dipstick) Normal (Negative); Leukocyte 75 Leu/uL (Negative); Protein, Urine (Dipstick) 10 mg/dL (Neg-Trace); Specific Gravity, Urine 1.018 (1.002-1.036)
[2025-03-16 17:52] LABS: Bacteria/HPF 1+ HPF (None Seen)
[2025-03-16 17:53] LABS: Urine Culture Reflex Yes Yes
[2025-03-16] MEDS ORDERED: Ondansetron PF 4 MG/2 ML Vial IVP PRN (18:50)
[2025-03-16] MEDS ORDERED: Electrolyte Replacement Protocol 1 EACH FS SCH (19:00)
[2025-03-16] MEDS ORDERED: Cefepime 2 GM VIAL ONE (19:13)
[2025-03-16] MEDS ORDERED: ALOE VERA TOP PRN (19:51)
[2025-03-16] MEDS ORDERED: Albuterol 2.5 MG (3 mL) NEB NEB PRN (19:51)
[2025-03-16] MEDS ORDERED: LevoFLOXacin 750 mg/D5W 150 ml Premix Bag ONE (20:22)
[2025-03-16] MEDS ORDERED: LevoFLOXacin 750 mg/D5W 750 MG in Premix 1 BAG IVPB SCH (21:00)
[2025-03-16] MEDS ORDERED: Pharmacy to Dose: VANC IVPB PRN (21:11)
[2025-03-16 23:33] VITALS: BMI 30.9
[2025-03-16] MEDS: Vancomycin 1.25 GM / NS 250 ML VIAL-2-BAG IVPB SCH (23:45)
[2025-03-16] MEDS: Famotidine 20 MG TAB PO SCH (23:53)
[2025-03-16] MEDS: VANCOMYCIN 2 GRAM/400 ML Premix BAG IVPB SCH (23:53)
[2025-03-16] MEDS: Acetaminophen/Codeine 30-300mg Tablet PO PRN (23:56)
[2025-03-17 02:31] LABS: #Basophils 0.03 10x3/uL (0.0-0.2); #Eosinophils 0.21 10x3/uL (0.0-0.7); #Monocytes 0.81 10x3/uL (0.11-0.59); #Neutrophils 4.83 10x3/uL (1.40-6.50); %Basophils 0.3 % (0.0-1.0); %Eosinophils 2.4 % (0.0-10.0); %Lymphocytes 33.2 % (21.0-51.0); %Monocytes 9.1 % (0.0-10.0); %Neutrophils 54.5 % (42.0-75.0); Hematocrit 33.7 % (42.0-52.0); Hemoglobin 9.8 g/dL (14.0-18.0); Mean Corpuscular Hemoglobin 21.8 pg (27.0-31.0); Mean Corpuscular Volume 75.1 fL (78.0-98.0); Platelet Count 315 10x3/uL (130-400); Red Blood Cell (RBC) Count 4.49 mill/uL (4.70-6.10); White Blood Cell (WBC) Count 8.86 10x3/uL (4.8-10.8)
[2025-03-17] MEDS: diphenhydrAMINE 25 MG CAP PO SCH (02:38)
[2025-03-17 03:56] LABS: ALT (SGPT) 26 U/L (Less than 45); AST (SGOT) 23 U/L (11-34); Albumin 3.2 g/dL (3.1-4.5); Alkaline Phosphatase 114 U/L (40-110); Anion Gap 19 mmol/L (10-20); BUN (Urea Nitrogen) 14 mg/dL (8.9-20.6); Bilirubin, Total 0.3 mg/dL (0.3-1.2); Calc. Creatinine Clearance 329 mL/min (70-130); Calcium 9.2 mg/dL (7.8-10.44); Carbon Dioxide 19 mmol/L (22-29); Chloride 101 mmol/L (98-107); Globulin 3.9 g/dL (2.4-3.5); Glucose 86 mg/dL (70-105); Potassium 4.1 mmol/L (3.5-5.1); Sodium 135 mmol/L (136-145)
[2025-03-17 03:58] LABS: Vancomycin, Random 41.1 ug/mL (See Comment)
[2025-03-17] MEDS: Communication Order-Pharmacy FS SCH (07:46)
[2025-03-17] MEDS: Vancomycin 1 GM in Sodium Chloride 0.9% 250 ML 300 ML IVPB SCH (07:55)
[2025-03-17] MEDS: Multivitamin W/ Minerals 1 TAB PO SCH (09:48)
[2025-03-17] MEDS: Ferrous Sulfate 325 MG TAB PO SCH (09:49)
[2025-03-17] MEDS: Bisacodyl 10 MG SUPP PR SCH ×2 (09:50→21:28)
[2025-03-17] MEDS: Enoxaparin 40 MG (0.4 mL) SYRINGE SC SCH (09:50)
[2025-03-17 10:08] VITALS: BMI 30.9
[2025-03-17] MEDS: Senokot S 8.6-50 MG TAB PO SCH (21:28)
[2025-03-17] MEDS: LevoFLOXacin 750 mg/D5W 750 MG in Premix 1 BAG IVPB SCH (21:31)
[2025-03-18 05:42] LABS: Anion Gap 16 mmol/L (10-20); BUN (Urea Nitrogen) 14 mg/dL (8.9-20.6); Calc. Creatinine Clearance 364 mL/min (70-130); Calcium 9.1 mg/dL (7.8-10.44); Carbon Dioxide 23 mmol/L (22-29); Chloride 105 mmol/L (98-107); Glucose 128 mg/dL (70-105); Potassium 3.8 mmol/L (3.5-5.1); Sodium 140 mmol/L (136-145)
[2025-03-18 06:33] LABS: #Basophils Less than 0.03 10x3/uL (0.0-0.2); #Eosinophils 0.27 10x3/uL (0.0-0.7); #Monocytes 0.81 10x3/uL (0.11-0.59); #Neutrophils 6.36 10x3/uL (1.40-6.50); %Basophils 0.2 % (0.0-1.0); %Eosinophils 3.0 % (0.0-10.0); %Lymphocytes 15.5 % (21.0-51.0); %Monocytes 9.1 % (0.0-10.0); %Neutrophils 71.7 % (42.0-75.0); Hematocrit 34.2 % (42.0-52.0); Hemoglobin 9.9 g/dL (14.0-18.0); Mean Corpuscular Hemoglobin 22.0 pg (27.0-31.0); Mean Corpuscular Volume 75.8 fL (78.0-98.0); Platelet Count 269 10x3/uL (130-400); Red Blood Cell (RBC) Count 4.51 mill/uL (4.70-6.10); White Blood Cell (WBC) Count 8.88 10x3/uL (4.8-10.8)
[2025-03-19] MEDS: Simethicone Chewable 80 MG TAB PO PRN (00:30)
[2025-03-19 06:21] LABS: #Basophils Less than 0.03 10x3/uL (0.0-0.2); #Eosinophils 0.22 10x3/uL (0.0-0.7); #Monocytes 0.64 10x3/uL (0.11-0.59); #Neutrophils 4.26 10x3/uL (1.40-6.50); %Basophils 0.3 % (0.0-1.0); %Eosinophils 3.2 % (0.0-10.0); %Lymphocytes 24.3 % (21.0-51.0); %Monocytes 9.4 % (0.0-10.0); %Neutrophils 62.2 % (42.0-75.0); Hematocrit 29.7 % (42.0-52.0); Hemoglobin 8.8 g/dL (14.0-18.0); Mean Corpuscular Hemoglobin 22.6 pg (27.0-31.0); Mean Corpuscular Volume 76.2 fL (78.0-98.0); Platelet Count 229 10x3/uL (130-400); Red Blood Cell (RBC) Count 3.90 mill/uL (4.70-6.10); White Blood Cell (WBC) Count 6.84 10x3/uL (4.8-10.8)
[2025-03-19 06:36] LABS: Vancomycin, Random 43.4 ug/mL (See Comment)
[2025-03-19 06:37] LABS: Anion Gap 13 mmol/L (10-20); BUN (Urea Nitrogen) 10 mg/dL (8.9-20.6); Calc. Creatinine Clearance 321 mL/min (70-130); Calcium 9.3 mg/dL (7.8-10.44); Carbon Dioxide 23 mmol/L (22-29); Chloride 110 mmol/L (98-107); Glucose 90 mg/dL (70-105); Potassium 3.7 mmol/L (3.5-5.1); Sodium 142 mmol/L (136-145)
[2025-03-20 06:07] LABS: Calc. Creatinine Clearance 256.0 mL/min (70-130); Vancomycin, Random 23.5 ug/mL (See Comment)
[2025-03-20] MEDS: Vancomycin 1 GM in Premix 1 BAG IVPB SCH (08:35)
[2025-03-21 05:56] LABS: #Basophils 0.03 10x3/uL (0.0-0.2); #Eosinophils 0.19 10x3/uL (0.0-0.7); #Monocytes 0.86 10x3/uL (0.11-0.59); #Neutrophils 5.31 10x3/uL (1.40-6.50); %Basophils 0.4 % (0.0-1.0); %Eosinophils 2.3 % (0.0-10.0); %Lymphocytes 23.0 % (21.0-51.0); %Monocytes 10.3 % (0.0-10.0); %Neutrophils 63.6 % (42.0-75.0); Hematocrit 30.2 % (42.0-52.0); Hemoglobin 8.9 g/dL (14.0-18.0); Mean Corpuscular Hemoglobin 22.4 pg (27.0-31.0); Mean Corpuscular Volume 75.9 fL (78.0-98.0); Platelet Count 248 10x3/uL (130-400); Red Blood Cell (RBC) Count 3.98 mill/uL (4.70-6.10); White Blood Cell (WBC) Count 8.34 10x3/uL (4.8-10.8)
[2025-03-21 06:09] LABS: Anion Gap 16 mmol/L (10-20); BUN (Urea Nitrogen) 13 mg/dL (8.9-20.6); Calc. Creatinine Clearance 276 mL/min (70-130); Calcium 9.3 mg/dL (7.8-10.44); Carbon Dioxide 24 mmol/L (22-29); Chloride 105 mmol/L (98-107); Glucose 98 mg/dL (70-105); Potassium 3.9 mmol/L (3.5-5.1); Sodium 141 mmol/L (136-145)
[2025-03-21 12:02] VITALS: BP 120/77; TEMP 98.4
== END 2025-03-21 15:23 | disposition home or self-care (01) | DRG 698 ==
LOC: ERS 12:08 → SURG A 18:50
PROVIDERS: ADMIT Family Medicine; ATTEND Internal Medicine
DX: T83.518A Infection and inflammatory reaction due to other urinary catheter, initial encounter (principal); G82.50 Quadriplegia, unspecified; L89.323 Pressure ulcer of left buttock, stage 3; N39.0 Urinary tract infection, site not specified; K59.00 Constipation, unspecified; Z98.890 Other specified postprocedural states; D50.9 Iron deficiency anemia, unspecified; J45.998 Other asthma; Z79.899 Other long term (current) drug therapy
CPT/HCPCS: 36415; 80048; 80053; 80202; 81001; 82565; 85025; 87040; 87077; 87086; 87149; 96365; 96375; 97139; J0692; J1650; J1956; J2543; J3373; J3375; J7050

== ENCOUNTER 2025-04-08 19:42 | Emergency (ER) | payer MEDICAID ==
[2025-04-08 20:37] LABS: #Basophils Less than 0.03 10x3/uL (0.0-0.2); #Eosinophils 0.30 10x3/uL (0.0-0.7); #Monocytes 0.79 10x3/uL (0.11-0.59); #Neutrophils 4.73 10x3/uL (1.40-6.50); %Basophils 0.3 % (0.0-1.0); %Eosinophils 3.8 % (0.0-10.0); %Lymphocytes 25.5 % (21.0-51.0); %Monocytes 10.0 % (0.0-10.0); %Neutrophils 60.1 % (42.0-75.0); Hematocrit 31.5 % (42.0-52.0); Hemoglobin 9.5 g/dL (14.0-18.0); Mean Corpuscular Hemoglobin 22.9 pg (27.0-31.0); Mean Corpuscular Volume 75.9 fL (78.0-98.0); Platelet Count 263 10x3/uL (130-400); Red Blood Cell (RBC) Count 4.15 mill/uL (4.70-6.10); White Blood Cell (WBC) Count 7.87 10x3/uL (4.8-10.8)
[2025-04-08 20:41] LABS: Glucose, Urine (Dipstick) Normal (Negative); Leukocyte 500 Leu/uL (Negative); Protein, Urine (Dipstick) 10 mg/dL (Neg-Trace); RBC/HPF 0-3 HPF (0-3); Specific Gravity, Urine 1.017 (1.002-1.036); WBC/HPF Greater than 50 HPF (0-3)
[2025-04-08 20:44] LABS: Bacteria/HPF 1+ HPF (None Seen)
[2025-04-08 20:45] LABS: Urine Culture Reflex Yes Yes
[2025-04-08 20:53] LABS: ALT (SGPT) 25 U/L (Less than 45); AST (SGOT) 19 U/L (11-34); Albumin 3.2 g/dL (3.1-4.5); Alkaline Phosphatase 116 U/L (40-110); Anion Gap 15 mmol/L (10-20); BUN (Urea Nitrogen) 15 mg/dL (8.9-20.6); Bilirubin, Total 0.1 mg/dL (0.3-1.2); Calc. Creatinine Clearance 0 mL/min (70-130); Calcium 9.2 mg/dL (7.8-10.44); Carbon Dioxide 28 mmol/L (22-29); Chloride 103 mmol/L (98-107); Globulin 4.2 g/dL (2.4-3.5); Glucose 142 mg/dL (70-105); Potassium 3.9 mmol/L (3.5-5.1); Sodium 142 mmol/L (136-145)
[2025-04-08] MEDS ORDERED: HYDROcodone/Acetaminophen 5/325 mg Tablet ONE (22:40)
== END 2025-04-08 23:30 ==
LOC: ERS 19:42
DX: L89.151 Pressure ulcer of sacral region, stage 1 (principal); K21.9 Gastro-esophageal reflux disease without esophagitis; Z79.899 Other long term (current) drug therapy
CPT/HCPCS: 51702; 71045; 74177; 80053; 81001; 83605; 85025; 87040; 87077; 87086; 87186; 87428; 93005; 94760; Q9967